=== PATIENT | female | born 1945 | race Hispanic/Latino ===

== ENCOUNTER 2017-07-30 16:04 | Inpatient (IN) | payer MEDICARE, MEDICAID ==
[2017-07-30 16:56] LABS: #Eosinphils 0.1 thou/uL (0.0-0.7); #Lymphocytes 1.4 thou/uL (1.20-3.40); #Monocytes 0.4 thou/uL (0.11-0.59); #Neutrophils 3.4 thou/uL (1.40-6.50); %Basophils 0.5 % (0.0-1.0); %Eosinophils 1.5 % (0.0-10.0); %Lymphocytes 27.1 % (21.0-51.0); %Monocytes 7.6 % (0.0-10.0); %Neutrophils 63.4 % (42.0-75.0); Hemoglobin 15.7 g/dL (12.0-16.0); Mean Corpuscular HGB CONC 32.8 g/dL (32.0-36.0); Mean Corpuscular Hemoglobin 33.1 pg (27.0-31.0); Mean Platelet Volume 7.8 fL (7.4-10.4); Platelet Count 171 thou/uL (130-400); RBC Distribution Width 14.7 % (11.5-14.5); Red Blood Cell (RBC) Count 4.75 mill/uL (4.20-5.40); White Blood Cell (WBC) Count 5.3 thou/uL (4.8-10.8)
[2017-07-30 17:03] LABS: INR-International Normal Ratio 1.3; Prothrombin Time 16.2 SEC (12.0-14.7)
[2017-07-30 17:18] LABS: Anion Gap 14 mmol/L (10-20); BUN (Urea Nitrogen) 18 mg/dL (9.8-20.1); Calc. Creatinine Clearance 0 mL/min (70-130); Carbon Dioxide 24 mmol/L (23-31); Chloride 104 mmol/L (98-107); Estimated GFR-MDRD 84; Glucose 112 mg/dL (80-115); Magnesium 1.7 mg/dL (1.6-2.6); Potassium 3.9 mmol/L (3.5-5.1); Sodium 138 mmol/L (136-145)
[2017-07-30 17:24] LABS: CKMB 2.5 ng/mL (0-6.6); Troponin I 0.023 ng/mL (< 0.028)
[2017-07-30] MEDS ORDERED: Diltiazem 125 MG/25 ML ONE (17:31)
--- NOTE | 2017-07-30 17:53 | RAD ---
ONE VIEW CHEST: 07/30/17 COMPARISON: 06/06/15. HISTORY: Dyspnea. FINDINGS: Enlarged cardiac silhouette. Pulmonary vessels are normal. There are bibasilar pleural effusion with adjacent parenchymal changes. Upper lungs are clear of any consolidation or masses. No pneumothorax. No osseous abnormalities. IMPRESSION: Cardiomegaly. Bilateral pleural effusions. Congestive heart failure. POS: [facility]
[2017-07-30 21:29] LABS: Troponin I Less than 0.010 ng/mL (< 0.028)
[2017-07-30 21:48] LABS: Bilirubin Moderate (Negative); Blood, Urine Trace (Negative); Clarity CLOUDY (Clear); Glucose, Urine (Dipstick) Negative (Negative); Leukocyte Small (Negative); Nitrite Positive (Negative); Protein, Urine (Dipstick) 300 mg/dL (Neg-Trace); Specific Gravity, Urine 1.035 (1.002-1.036); pH, Urine 5.5 (5.0-9.0)
[2017-07-30 21:51] LABS: Bacteria/HPF None Seen HPF (None Seen); Squamous Epithelial 0-3 HPF (0-3)
[2017-07-30 21:59] LABS: Pathc Cast-AUWi Flag 4.36 (0-2.49)
[2017-07-30 22:06] LABS: RBC/HPF 0-3 HPF (0-3)
[2017-07-30 22:07] LABS: Crystals/HPF 3+ CA OXALATE HPF (Negative); Hyaline Casts/LPF 4-6 HYALINE CAST LPF (0-3 Hyaline)
[2017-07-31] MEDS ORDERED: Milk Of Magnesia 30 ML UDCUP PO PRN (00:11)
[2017-07-31] MEDS ORDERED: Mag-Al 1200 mg/1200 mg/30 ML UDCUP PO PRN (00:11)
[2017-07-31] MEDS ORDERED: Ondansetron ODT 4 MG TAB PO PRN (00:11)
[2017-07-31] MEDS ORDERED: Ondansetron HCl/PF 4 MG/2 ML Vial IVP PRN (00:11)
[2017-07-31 00:43] LABS: Troponin I 0.035 ng/mL (< 0.028)
[2017-07-31] MEDS: Acetaminophen 325 MG TAB PO PRN (00:56)
--- NOTE | 2017-07-31 02:26 | HP ---
PRIMARY CARE PHYSICIAN: Dr. Ana Newton at [facility]. CHIEF COMPLAINT: Shortness of breath. HISTORY OF PRESENT ILLNESS: Ms. Henning is a pleasant 71-year-old female who has a history of hypert ension and atrial fibrillation. She says she has never had problems with atrial fibrillation until r ecently. She says she really did not notice any significant problems herself other than shortness of breath, she says 6 months, but she says that her daughter says that she did not look very good and s uggested that she come to the hospital. When asked what in particular her daughter was concerned abo oh, she is really not sure, but she does admit to feeling short of breath over the last 6 months, but has been getting progressively worse. She admits to waking up through the night short of breath. S he also says that her granddaughter noticed her legs are swelling. The patient herself really had be en paid much attention to it. She says that she has been under a lot of stress with regard to family matters and as a result she has been "running all around," but not really paying attention to her ow n health. She was seen in the ER, she was found to be in atrial fibrillation with rapid ventricular response. She was placed on a Cardizem drip and is being admitted for further evaluation and treatme . The patient denies any chest pain. She has had the shortness of breath as previously mentioned, but denies any dizziness or lightheadedness, etc. REVIEW OF SYSTEMS: Constitutional: There have been no fevers, chills, no night sweats, no weight lo ss. HEENT: No headache, no dizziness, no visual changes, no sore throat, rhinorrhea, neck pain, no adenopathy. Pulmonary: No hemoptysis, no cough, no wheezing. Cardiovascular: As the history of pr esent illness. Gastrointestinal: No abdominal pain, no nausea, no vomiting, no change in bowels. G enitourinary: No urinary frequency, hematuria, no hesitancy. Neurologic: No focal weakness, numbne ss, no seizures. Psychiatric: No symptoms of anxiety or depression. Skin and Integument: No skin changes. No rash. PAST MEDICAL HISTORY: Significant for hypertension and atrial fibrillation. PAST SURGICAL HISTORY: She has had a hysterectomy. ALLERGIES: PENICILLIN. SOCIAL HISTORY: She is a former smoker. She quit 20 years ago. She is . She has 4 childre n, 3 boys and one girl. She would like her oldest son, Alexandro Quesada, to be her surrogate decision maker. She would like to be a do not resuscitate. FAMILY HISTORY: Significant for diabetes mellitus. CURRENT MEDICATIONS: She is not sure of the name of her medicine. PHYSICAL EXAMINATION: GENERAL: She is alert and oriented. She appears to be in no acute distress. VITAL SIGNS: Blood pressure is 131/75, heart rate 115, respiratory rate of 16, temperature is 98.4, O2 sats 97% on room air. HEENT: Pupils are equal, round, and reactive. Extraocular muscles are intact. Her sclerae are anic teric. Throat: No erythema, no exudates. She has poor dentition. No erythema. NECK: No adenopathy, no bruits, no thyromegaly, no nodules. LUNGS: She has got coarse breath sounds, but no jatin wheezing or rales. Some decreased breath soun ds at the bases. CARDIOVASCULAR: She has an irregularly irregular rhythm. It is tachycardic. There were no murmurs, no clicks, no rubs. ABDOMEN: Obese, it is soft, it is nontender, nondistended. Positive for bowel sounds. No rebound, no guarding. EXTREMITIES: She has got 2+ pitting edema bilaterally, but the left is greater than the right, and s he has got 2 ulcers on the lateral to the Achilles on both the medial and lateral side and it is a da rk eschar. Her pulses are palpable bilaterally, but her left dorsalis pedis is more diminished than on the right and she has got a blister on the fourth toe on the left foot and some mycotic nail dickerson es. NEUROLOGICALLY: The exam is nonfocal. SIGNIFICANT LABORATORY AND X-RAY FINDINGS: Sodium 130, potassium 3.9, chloride is 104, CO2 is 24, BU N of 18, creatinine 0.69, glucose is 112. Natriuretic peptide is 1781. Troponin 0.023 and 0.010. W eduarda blood cell count 5.3, hemoglobin 15.7, hematocrit is 47.8, platelet count is 171. INR is 1.3. Urinalysis is positive nitrites and small leukocyte esterase. EKG was atrial fibrillation with a hea rt rate in the 140s. ASSESSMENT AND PLAN: This is a pleasant 71-year-old female who presents with shortness of breath, PN D, and orthopnea. 1. She also was in atrial fibrillation with rapid ventricular response and appears to be in congesti ve heart failure, likely as a result of atrial fibrillation. She will be admitted to Telemetry. We will continue the Cardizem drip, which had been started in the ER, likely will need to get an echocar diogram as well as thyroid function test to help assess the reason for this recurrence of the atrial fibrillation and rapid ventricular response. We will also consult her building mechanic for further recom mendations. For heart failure, we will get an echocardiogram. Place her on IV Lasix due to the volu me overload. Based on her ejection fraction from the echo decide on further medication such as an AC E inhibitor, beta loretta. 2. Lower extremity edema. This is likely from heart failure, but suspect she might have some venous stasis as well. We will get lower extremity venous Dopplers just to rule out DVT. She may also nee d an arterial Doppler because there is some concern that she could have some vascular compromise on t he left leg, especially given the ulcers around her heel, although these are likely venous stasis [facility] ers and will also get local wound care consult to look at these lesions as well.
[2017-07-31 06:02] LABS: #Basophils 0.1 thou/uL (0.0-0.2); #Eosinphils 0.1 thou/uL (0.0-0.7); #Monocytes 0.5 thou/uL (0.11-0.59); #Neutrophils 3.4 thou/uL (1.40-6.50); %Basophils 0.9 % (0.0-1.0); %Eosinophils 1.5 % (0.0-10.0); %Lymphocytes 32.8 % (21.0-51.0); %Neutrophils 56.8 % (42.0-75.0); Hemoglobin 15.6 g/dL (12.0-16.0); Mean Corpuscular HGB CONC 33.1 g/dL (32.0-36.0); Mean Corpuscular Hemoglobin 33.5 pg (27.0-31.0); Mean Platelet Volume 8.3 fL (7.4-10.4); Platelet Count 167 thou/uL (130-400); RBC Distribution Width 14.6 % (11.5-14.5); Red Blood Cell (RBC) Count 4.65 mill/uL (4.20-5.40)
[2017-07-31] MEDS: Furosemide 40 MG/4 ML VIAL SLOW IVP SCH ×2 (06:09→14:37)
[2017-07-31 06:15] LABS: Anion Gap 13 mmol/L (10-20); BUN (Urea Nitrogen) 19 mg/dL (9.8-20.1); Calc. Creatinine Clearance 95 mL/min (70-130); Carbon Dioxide 25 mmol/L (23-31); Chloride 104 mmol/L (98-107); Cholesterol 85 mg/dl (< 200 Desired); Estimated GFR-MDRD 83; Glucose 92 mg/dL (80-115); HDL Cholesterol 21 mg/dL (>60 Neg Risk); LDL Cholesterol, Calculated 46 mg/dL; Potassium 3.7 mmol/L (3.5-5.1); Sodium 138 mmol/L (136-145); Triglycerides 88 mg/dL (Less than 150)
[2017-07-31] MEDS ORDERED: Diltiazem 125 MG in Sodium Chloride 0.9% 100 ML IVPB SCH ×2 (07:00→10:30)
[2017-07-31] MEDS: Famotidine 20 MG TAB PO SCH ×2 (10:12→20:48)
[2017-07-31] MEDS: Docusate 100 MG CAP PO SCH ×2 (10:12→20:48)
[2017-07-31] MEDS: Enoxaparin Sodium 60 MG/0.6 ML SYRINGE SC SCH ×2 (10:13→20:48)
--- NOTE | 2017-07-31 11:30 | ULT ---
BILATERAL LOWER EXTREMITY VENOUS DOPPLER ULTRASOUND: Date: 07/31/17 HISTORY: Bilateral lower extremity edema. TECHNIQUE: Arnold scale ultrasound with color flow and spectral Doppler imaging of the deep venous systems of the lower extremities was performed bilaterally. FINDINGS: There is good flow, compression, and augmentation noted in the common femoral, femoral, deep femoral, popliteal, posterior tibial, and greater saphenous veins on either side. IMPRESSION: No evidence of deep venous thrombosis in either lower extremity. POS: [facility]
--- NOTE | 2017-07-31 11:38 | ULT ---
BILATERAL LOWER EXTREMITY ARTERIAL DOPPLER STUDY: INDICATIONS: Bilateral lower extremity pain and edema. TECHNIQUE: The arteries of both lower extremities are evaluated with ultrasound and Doppler. Color Doppler with spectral analysis and velocity records are obtained at all segments. FINDINGS: RIGHT LOWER EXTREMITY: The right common femoral, the profunda femoral, the superficial femoral, the popliteal, the anterior tibial, the posterior tibial, and the dorsal pedis arteries all show a normal triphasic wave-form. Velocities appear symmetric throughout these arteries. LEFT LOWER EXTREMITY: The left common femoral, the profunda femoral, the superficial femoral, the po pliteal, the anterior tibial, the posterior tibial, and the dorsal pedis arteries all show a normal t riphasic wave-form with symmetric velocities. IMPRESSION: No evidence of significant peripheral vascular disease identified in either lower extremity by Dopple r study. POS: [facility]
--- NOTE | 2017-07-31 13:54 | PDOC.PN ---
- Subjective Encounter Start Date: 07/31/17 Encounter Start Time: 09:00 Subjective: pt up in bed eating breakfast - Objective Resuscitation Status: Resuscitation Status DNR:Do Not Resuscitate Vital Signs & Weight: Vital Signs (12 hours) Temp Pulse Resp BP BP Pulse Ox 07/31/17 08:00 97.4 F L 125 H 14 140/64 96 07/31/17 07:56 140/64 07/31/17 04:07 97.8 F 104 H 20 119/69 95 Weight Admit Weight 174 lb 3.2 oz Weight 175 lb 4.8 oz I&O: 07/30/17 07/31/17 08/01/17 06:59 06:59 06:59 Intake Total 504 Balance 504 Result Diagrams: 07/31/17 04:53 07/31/17 04:53 Phys Exam - Physical Examination HEENT: PERRLA, moist MMs, sclera anicteric, TM's clear, oral pharynx no lesions , 2+ tonsils Neck: no nodes, no JVD, supple, full ROM mild crackles to bases Cardiovascular: irregular Gastrointestinal: soft, non-tender, no distention, positive bowel sounds Musculoskeletal: edema present Dx/Plan - Plan 1) Afib with RVR 2) possible heart failure echo pending 3) lower ext edema 4) htn plan: pt stopped taking her medication 6months ago because she was feeling well. Her CHADVAS score is 3. She is not on any AC at home. currently on lovonox , will change to oral once seen by cardiology. echo pending. TSH pending. will change iv cardizem to oral. Arterial doppler normal. * . Review of Systems - Review of Systems Eyes: negative: Pain, Vision Change, Conjunctivae Inflammation, Eyelid Inflammation, Redness, Other ENT: negative: Ear Pain, Ear Discharge, Nose Pain, Nose Discharge, Nose Congestion, Mouth Pain, Mouth Swelling, Throat Pain, Throat Swelling, Other Respiratory: negative: Cough, Dry, Shortness of Breath, Hemoptysis, SOB with Excertion, Pleuritic Pain, Sputum, Wheezing Cardiovascular: negative: chest pain, palpitations, orthopnea, paroxysmal nocturnal dyspnea, edema, light headedness, other Gastrointestinal: negative: Nausea, Vomiting, Abdominal Pain, Diarrhea, Constipation, Melena, Hematochezia, Other Genitourinary: negative: Dysuria, Frequency, Incontinence, Hematuria, Retention , Other - Medications/Allergies Allergies/Adverse Reactions: Allergies Allergy/AdvReac Type Severity Reaction Status Date / Time Penicillins Allergy Verified 07/30/17 22:37 Medications: Current Medications Acetaminophen (Tylenol) 650 mg PO Q4H PRN PRN Reason: Headache/Fever or Pain Last Admin: 07/31/17 00:56 Dose: 650 mg Al Hydroxide/Mg Hydroxide (Maalox) 30 ml PO Q6H PRN PRN Reason: Heartburn or Indigestion Diltiazem HCl (Cardizem) 60 mg PO Q6H [facility] Docusate Sodium (Colace) 100 mg PO BID [facility] Last Admin: 07/31/17 10:12 Dose: 100 mg Enoxaparin Sodium (Lovenox) 60 mg SC 0900,2100 [facility] Last Admin: 07/31/17 10:13 Dose: 60 mg Famotidine (Pepcid) 20 mg PO BID [facility] Last Admin: 07/31/17 10:12 Dose: 20 mg Furosemide (Lasix) 40 mg SLOW IVP 0600,1400 [facility] Last Admin: 07/31/17 06:09 Dose: 40 mg Diltiazem HCl 125 mg/ Sodium (Chloride) 125 mls @ 10 mls/hr IVPB INF [facility] Magnesium Hydroxide (Milk Of Magnesium) 30 ml PO DAILYPRN PRN PRN Reason: Constipation Ondansetron HCl (Zofran Odt) 4 mg PO Q6H PRN PRN Reason: Nausea/Vomiting Ondansetron HCl (Zofran) 4 mg IVP Q6H PRN PRN Reason: Nausea/Vomiting Sodium Chloride (Flush - Normal Saline) 10 ml IVF Q12HR [facility] Last Admin: 07/31/17 08:03 Dose: 10 ml Sodium Chloride (Flush - Normal Saline) 10 ml IVF PRN PRN PRN Reason: Saline Flush Last Admin: 07/31/17 06:09 Dose: 10 ml
--- NOTE | 2017-07-31 14:25 | CON ---
DATE OF CONSULTATION: 07/31/2017 REASON FOR CONSULTATION: Atrial fibrillation. HISTORY OF PRESENT ILLNESS: Ms. Henning is a very pleasant 71-year-old who I have seen and evaluated in the past. She has a history of atrial fibrillation and was cardioverted x1 in 2012. She recently presented with atrial fibrillation with RVR. She also has associated cough, congestion, low grade fevers and phlegm production. She is currently placed on IV Cardizem with appropriate con trol. PAST MEDICAL HISTORY: Hypertension and atrial fibrillation. PAST SURGICAL HISTORY: Hysterectomy. ALLERGIES: PENICILLIN. FAMILY HISTORY: Negative for CAD. SOCIAL HISTORY: No current tobacco or alcohol use. MEDICATIONS: Unknown. REVIEW OF SYSTEMS: Ten-point review of systems is reviewed and as above, otherwise negative. PHYSICAL EXAMINATION: GENERAL: Patient is a pleasant female who is in no acute distress. The patient appears her stated a ge. VITAL SIGNS: Blood pressure 140/64, pulse 125, respirations 20. NEUROLOGIC: The patient is alert and oriented x3 with no focal neurologic deficits. HEENT: Sclerae without icterus. Mouth has moist mucous membranes with normal pallor. NECK: No JVD. Carotid upstroke brisk. No bruits bilaterally. LUNGS: Clear to auscultation with unlabored respirations. BACK: No scoliosis or kyphosis. CARDIAC: Irregularly irregular. ABDOMEN: Soft, nontender, nondistended. No peritoneal signs present. No hepatosplenomegaly. No ab normal striae. EXTREMITIES: 2+ femoral and 2+ dorsalis pedis pulses. No cyanosis, clubbing, or edema. SKIN: No gross abnormalities. PERTINENT LABORATORY DATA: Hemoglobin 15.6, creatinine 0.7. IMPRESSION: 1. Atrial fibrillation with rapid ventricular response. 2. Upper respiratory infection. RECOMMENDATIONS: At this point, I recommend IV Cardizem for rate control. We will supplement with p .o. Cardizem. The patient may have underlying pulmonary infection. We will leave per the primary te am on recommendations. We would also recommend anticoagulation therapy. I will continue to follow w debbi you.
[2017-08-01] MEDS: Acetaminophen 325 MG TAB PO PRN (01:12)
[2017-08-01] MEDS: Furosemide 40 MG/4 ML VIAL SLOW IVP SCH (06:00)
[2017-08-01] MEDS: Famotidine 20 MG TAB PO SCH ×2 (08:27→21:00)
[2017-08-01] MEDS: Docusate 100 MG CAP PO SCH ×2 (08:28→21:00)
[2017-08-01] MEDS: Enoxaparin Sodium 60 MG/0.6 ML SYRINGE SC SCH ×2 (08:28→21:00)
[2017-08-01 11:55] LABS: Anion Gap 11 mmol/L (10-20); BUN (Urea Nitrogen) 16 mg/dL (9.8-20.1); Calc. Creatinine Clearance 91 mL/min (70-130); Calcium 8.9 mg/dL (7.8-10.44); Carbon Dioxide 32 mmol/L (23-31); Chloride 100 mmol/L (98-107); Estimated GFR-MDRD 80; Glucose 86 mg/dL (80-115); Potassium 3.4 mmol/L (3.5-5.1); Sodium 140 mmol/L (136-145); Troponin I 0.011 ng/mL (< 0.028)
[2017-08-01] MEDS ORDERED: Potassium Chloride 20 MEQ TAB PO SCH (13:00)
[2017-08-01] MEDS ORDERED: Carvedilol 3.125 MG TAB PO SCH (14:30)
--- NOTE | 2017-08-01 14:39 | PRG ---
DATE OF SERVICE: 08/01/2017 SUBJECTIVE: Ms. Henning is doing better. She is off IV Cardizem. She is going to have p.o. Cardize m. Heart rate continues to have mildly elevated. PHYSICAL EXAMINATION: VITAL SIGNS: Blood pressure 111/76, pulse 104, temperature 97.5. LUNGS: Crackles bilaterally with decreased breath sounds noted on left versus right. HEART: Irregularly regular. ABDOMEN: Soft, nontender, nondistended. EXTREMITIES: 2+ pitting edema. PERTINENT LABORATORY DATA: Hemoglobin 15.6. IMPRESSION: 1. Atrial fibrillation. 2. New onset systolic heart failure. 3. Upper respiratory infection. RECOMMENDATIONS: The patient's symptoms may be all related to acute systolic heart failure. This is felt to be a new finding. At this point, we will add low dose Coreg and try and titrate up her Core g and we titrate down her Cardizem. Continue Lovenox. We will continue diuresis with IV Lasix. Hitesh n is to proceed with angiography on Saturday. I discussed the procedure in full detail with Ms. Siomara robbins. The risks included but not limited to the following: , stroke, OR, need for emergency surge ry, loss of limb, bleeding, and infection, as well as a reaction to the dye causing kidney failure an d needing long-term dialysis. Other risks include acute stent thrombosis and restenosis, vessel disse ction, perforation, need for emergency surgery in addition to distal embolization causing chronic roseline t discomfort as well as amputation. All questions answered and also discussed drug versus nondrug st ent placement. There are no contraindications and proceed if needed. Further recommendation dependi darinel above.
--- NOTE | 2017-08-01 14:52 | PDOC.PN ---
- Subjective Encounter Start Date: 08/01/17 Encounter Start Time: 11:30 - Objective Resuscitation Status: Resuscitation Status DNR:Do Not Resuscitate Vital Signs & Weight: Vital Signs (12 hours) Temp Pulse Resp BP BP BP Pulse Ox 08/01/17 12:00 97.7 F 97 16 112/84 99 08/01/17 08:27 104 H 111/76 08/01/17 08:00 97.5 F L 104 H 18 111/76 97 08/01/17 04:00 97.7 F 91 20 114/79 93 L Weight Admit Weight 174 lb 3.2 oz Weight 172 lb 12.8 oz I&O: 07/31/17 08/01/17 08/02/17 06:59 06:59 06:59 Intake Total 504 1374 600 Output Total 900 Balance 504 474 600 Result Diagrams: 07/31/17 04:53 08/01/17 11:10 Phys Exam - Physical Examination HEENT: PERRLA, moist MMs, sclera anicteric, TM's clear, oral pharynx no lesions , 2+ tonsils Neck: no nodes, no JVD, supple, full ROM Respiratory: no wheezing, no rales, no rhonchi, wheezing present, clear to auscultation bilateral Cardiovascular: RRR, no significant murmur, no rub, gallop, irregular Gastrointestinal: soft, non-tender, no distention, positive bowel sounds Musculoskeletal: edema present Neurological: non-focal, normal sensation, moves all 4 limbs Dx/Plan - Plan 1) Afib with RVR 2)systolic heart failure new 3) acute uti 4) htn plan: pt stopped taking her medication 6months ago because she was feeling well. Her CHADVAS score is 3. She is not on any AC at home. currently on lovonox , will change to oral once seen by cardiology. echo pending. TSH pending. will change iv cardizem to oral. Arterial doppler normal. will continue current meds , coreg added. will continue bid lasix iv for now. will start pt on cipro will await culture. pt going for cath per cardiology. pt's bp is on the lower side will change lasix to qd. pt on coreg * . Review of Systems - Review of Systems Eyes: negative: Pain, Vision Change, Conjunctivae Inflammation, Eyelid Inflammation, Redness, Other ENT: negative: Ear Pain, Ear Discharge, Nose Pain, Nose Discharge, Nose Congestion, Mouth Pain, Mouth Swelling, Throat Pain, Throat Swelling, Other Respiratory: negative: Cough, Dry, Shortness of Breath, Hemoptysis, SOB with Excertion, Pleuritic Pain, Sputum, Wheezing Cardiovascular: negative: chest pain, palpitations, orthopnea, paroxysmal nocturnal dyspnea, edema, light headedness, other Gastrointestinal: negative: Nausea, Vomiting, Abdominal Pain, Diarrhea, Constipation, Melena, Hematochezia, Other Genitourinary: negative: Dysuria, Frequency, Incontinence, Hematuria, Retention , Other Musculoskeletal: negative: Neck Pain, Shoulder Pain, Arm Pain, Back Pain, Hand Pain, Leg Pain, Foot Pain, Other - Medications/Allergies Allergies/Adverse Reactions: Allergies Allergy/AdvReac Type Severity Reaction Status Date / Time Penicillins Allergy Verified 07/30/17 22:37 Medications: Current Medications Acetaminophen (Tylenol) 650 mg PO Q4H PRN PRN Reason: Headache/Fever or Pain Last Admin: 08/01/17 01:12 Dose: 650 mg Al Hydroxide/Mg Hydroxide (Maalox) 30 ml PO Q6H PRN PRN Reason: Heartburn or Indigestion Carvedilol (Coreg) 3.125 mg PO BID [facility] Carvedilol (Coreg) 3.125 mg PO NOW [facility] Stop: 08/01/17 16:30 Ciprofloxacin (Cipro) 250 mg PO BID@0600,2000 [facility] Diltiazem HCl (Cardizem Cd) 240 mg PO DAILY [facility] Last Admin: 08/01/17 08:27 Dose: 240 mg Docusate Sodium (Colace) 100 mg PO BID [facility] Last Admin: 08/01/17 08:28 Dose: 100 mg Enoxaparin Sodium (Lovenox) 60 mg SC 0900,2100 [facility] Last Admin: 08/01/17 08:28 Dose: 60 mg Famotidine (Pepcid) 20 mg PO BID [facility] Last Admin: 08/01/17 08:27 Dose: 20 mg Furosemide (Lasix) 40 mg SLOW IVP DAILY [facility] Magnesium Hydroxide (Milk Of Magnesium) 30 ml PO DAILYPRN PRN PRN Reason: Constipation Ondansetron HCl (Zofran Odt) 4 mg PO Q6H PRN PRN Reason: Nausea/Vomiting Ondansetron HCl (Zofran) 4 mg IVP Q6H PRN PRN Reason: Nausea/Vomiting Sodium Chloride (Flush - Normal Saline) 10 ml IVF Q12HR [facility] Last Admin: 08/01/17 08:30 Dose: 10 ml Sodium Chloride (Flush - Normal Saline) 10 ml IVF PRN PRN PRN Reason: Saline Flush Last Admin: 08/01/17 06:00 Dose: 10 ml
[2017-08-01] MEDS: Cipro 250 MG TAB PO SCH (21:00)
[2017-08-01] MEDS: Atorvastatin Calcium 10 MG TAB PO SCH (21:00)
[2017-08-01] MEDS ORDERED: Furosemide 40 MG/4 ML VIAL SLOW IVP SCH (21:00)
[2017-08-01] MEDS: Carvedilol 3.125 MG TAB PO SCH (21:00)
[2017-08-02] MEDS ORDERED: diphenhydrAMINE 25 MG CAP PO SCH (03:00)
[2017-08-02] MEDS: Cipro 250 MG TAB PO SCH (06:47)
[2017-08-02] MEDS ORDERED: Furosemide 40 MG/4 ML VIAL SLOW IVP SCH ×3 (09:00→14:00)
[2017-08-02] MEDS: Famotidine 20 MG TAB PO SCH ×2 (09:01→21:17)
[2017-08-02] MEDS: Carvedilol 3.125 MG TAB PO SCH (09:01)
[2017-08-02] MEDS: Docusate 100 MG CAP PO SCH ×2 (09:01→21:17)
[2017-08-02] MEDS: Enoxaparin Sodium 60 MG/0.6 ML SYRINGE SC SCH ×2 (09:02→21:18)
[2017-08-02] MEDS ORDERED: Potassium Chloride 20 MEQ TAB PO SCH (10:00)
--- NOTE | 2017-08-02 13:49 | PDOC.CTH ---
Cardiology Progress Note - Subjective Patient with complaint of edema that's improved. No CP, SOB. No TIA or stroke- like symptoms. - Objective Vital Signs Temp Pulse Resp BP BP Pulse Ox 08/02/17 09:01 91 113/62 08/02/17 04:00 97.9 F 66 18 109/84 93 L Admit Weight 174 lb 3.2 oz Weight 176 lb 3 oz 08/01/17 08/02/17 08/03/17 06:59 06:59 06:59 Intake Total 1374 1540 Output Total 900 Balance 474 1540 - Physical Examination General/Neuro: alert & oriented x3, NAD Lungs: other: (decreased BS at bases) Heart: other: (IRR) Abdomen: NT/ND, soft Extremities: other: (2-3+ bilateral pitting edema) - Telemetry Telemetry Rhythm: AFib. Rate 90s-110bpm - Labs Result Diagrams: 07/31/17 04:53 08/01/17 11:10 Troponin/CKMB CK-MB (CK-2) 3.0 ng/mL (0-6.6) 08/01/17 11:10 Troponin I 0.011 ng/mL (< 0.028) 08/01/17 11:10 Labs: O/W CBC wnl - Assessment/Plan 1. New-onset systolic CHF - Improved overall, but will give additional lasix 40mg IV today. Plan for cath Saturday. 2. AFib with RVR - improved heart rate control. Increase Coreg to 6.25mg BID starting tomorrow. Wean cardizem and continue to titrate bblockers. On Lovenox. Will need NOAC started after cath and pending findings. 3. HTN - controlled.
[2017-08-02] MEDS: Potassium Chloride 20 MEQ TAB PO SCH (16:24)
--- NOTE | 2017-08-02 17:59 | PDOC.PN ---
- Subjective Encounter Start Date: 08/02/17 Encounter Start Time: 14:30 Patient seen and examined. No new complaints. No overnight events. No new CP/SOB /syncope - Objective Resuscitation Status: Resuscitation Status DNR:Do Not Resuscitate MAR Reviewed: Yes Vital Signs & Weight: Vital Signs (12 hours) Temp Pulse Resp BP BP Pulse Ox 08/02/17 16:22 97.8 F 84 17 104/70 96 08/02/17 12:10 97.6 F 97 18 99/69 96 08/02/17 09:01 91 113/62 08/02/17 08:15 97.7 F 91 17 113/62 97 Weight Admit Weight 174 lb 3.2 oz Weight 176 lb 3 oz I&O: 08/01/17 08/02/17 08/03/17 06:59 06:59 06:59 Intake Total 1374 1540 Output Total 900 Balance 474 1540 Result Diagrams: 07/31/17 04:53 08/01/17 11:10 EKG Reviewed by me: Yes (Tele Afib) Phys Exam - Physical Examination Constitutional: NAD Respiratory: no wheezing, no rhonchi Cardiovascular: no rub, irregular Gastrointestinal: soft, non-tender, positive bowel sounds Musculoskeletal: edema present Neurological: moves all 4 limbs Dx/Plan - Plan DVT proph w/lovenox IMPRESSION: 1. Afib with RVR - Off Cardizem drip 2. New onset Systolic heart failure 3. HTN 4. Hypokalemia 5. URTI/?UTI 6. Elevated troponins due to demand ischemia PLAN: * Cardio following * Cont current meds as below * Cont anticoag/rate control * DC Cipro - Urine cultures * Reduce Lasix dose * AM labs * Cont to monitor * Replace Potassium * Cath on saturday Review of Systems - Review of Systems Respiratory: negative: Cough, Dry, Shortness of Breath, Hemoptysis, SOB with Excertion, Pleuritic Pain, Sputum, Wheezing Cardiovascular: negative: chest pain, palpitations, orthopnea, paroxysmal nocturnal dyspnea, edema, light headedness, other Gastrointestinal: negative: Nausea, Vomiting, Abdominal Pain, Diarrhea, Constipation, Melena, Hematochezia, Other - Medications/Allergies Allergies/Adverse Reactions: Allergies Allergy/AdvReac Type Severity Reaction Status Date / Time Penicillins Allergy Verified 07/30/17 22:37 Medications: Current Medications Acetaminophen (Tylenol) 650 mg PO Q4H PRN PRN Reason: Headache/Fever or Pain Last Admin: 08/01/17 01:12 Dose: 650 mg Al Hydroxide/Mg Hydroxide (Maalox) 30 ml PO Q6H PRN PRN Reason: Heartburn or Indigestion Atorvastatin Calcium (Lipitor) 10 mg PO HS [facility] Last Admin: 08/01/17 21:00 Dose: 10 mg Carvedilol (Coreg) 6.25 mg PO BID [facility] Ciprofloxacin (Cipro) 250 mg PO BID@0600,2000 [facility] Last Admin: 08/02/17 06:47 Dose: 250 mg Diltiazem HCl (Cardizem Cd) 120 mg PO DAILY [facility] Docusate Sodium (Colace) 100 mg PO BID [facility] Last Admin: 08/02/17 09:01 Dose: 100 mg Enoxaparin Sodium (Lovenox) 60 mg SC 0900,2100 [facility] Last Admin: 08/02/17 09:02 Dose: 60 mg Famotidine (Pepcid) 20 mg PO BID [facility] Last Admin: 08/02/17 09:01 Dose: 20 mg Furosemide (Lasix) 20 mg SLOW IVP 0600,1400 [facility] Magnesium Hydroxide (Milk Of Magnesium) 30 ml PO DAILYPRN PRN PRN Reason: Constipation Ondansetron HCl (Zofran Odt) 4 mg PO Q6H PRN PRN Reason: Nausea/Vomiting Ondansetron HCl (Zofran) 4 mg IVP Q6H PRN PRN Reason: Nausea/Vomiting Potassium Chloride (K-Dur) 20 meq PO BID-[facility] Last Admin: 08/02/17 16:24 Dose: 20 meq Sodium Chloride (Flush - Normal Saline) 10 ml IVF Q12HR [facility] Last Admin: 08/02/17 09:02 Dose: 10 ml Sodium Chloride (Flush - Normal Saline) 10 ml IVF PRN PRN PRN Reason: Saline Flush Last Admin: 08/01/17 06:00 Dose: 10 ml
[2017-08-02] MEDS: Atorvastatin Calcium 10 MG TAB PO SCH (21:17)
[2017-08-03] MEDS: Acetaminophen 325 MG TAB PO PRN ×3 (02:19→20:44)
[2017-08-03 05:31] LABS: #Basophils 0.1 thou/uL (0.0-0.2); #Eosinphils 0.1 thou/uL (0.0-0.7); #Lymphocytes 1.8 thou/uL (1.20-3.40); #Monocytes 0.6 thou/uL (0.11-0.59); #Neutrophils 2.6 thou/uL (1.40-6.50); %Basophils 1.8 % (0.0-1.0); %Eosinophils 2.8 % (0.0-10.0); %Lymphocytes 34.6 % (21.0-51.0); %Monocytes 10.6 % (0.0-10.0); %Neutrophils 50.2 % (42.0-75.0); Hemoglobin 14.3 g/dL (12.0-16.0); Mean Corpuscular HGB CONC 33.2 g/dL (32.0-36.0); Mean Corpuscular Hemoglobin 33.7 pg (27.0-31.0); Mean Platelet Volume 8.7 fL (7.4-10.4); Platelet Count 130 thou/uL (130-400); Red Blood Cell (RBC) Count 4.24 mill/uL (4.20-5.40); White Blood Cell (WBC) Count 5.2 thou/uL (4.8-10.8)
[2017-08-03] MEDS: Furosemide 20 MG/2 ML VIAL SLOW IVP SCH ×2 (06:08→13:01)
[2017-08-03 06:09] LABS: Anion Gap 12 mmol/L (10-20); BUN (Urea Nitrogen) 21 mg/dL (9.8-20.1); Calc. Creatinine Clearance 87 mL/min (70-130); Calcium 8.5 mg/dL (7.8-10.44); Carbon Dioxide 29 mmol/L (23-31); Chloride 100 mmol/L (98-107); Estimated GFR-MDRD 75; Glucose 97 mg/dL (80-115); Magnesium 1.4 mg/dL (1.6-2.6); Potassium 3.4 mmol/L (3.5-5.1); Sodium 138 mmol/L (136-145)
[2017-08-03] MEDS ORDERED: traMADol HCl 50 MG TAB PO PRN (07:57)
[2017-08-03] MEDS ORDERED: Loperamide HCl 2 MG CAP PO PRN (07:57)
[2017-08-03] MEDS ORDERED: Artificial Tears 18 DROP/0.9 ML EA EYE PRN (07:57)
[2017-08-03] MEDS ORDERED: Sodium Chloride 0.65% Nasal 44 ML BOT EA NARE PRN (07:57)
[2017-08-03] MEDS ORDERED: Chloraseptic Spray 180 ml Bottle PO PRN (07:57)
[2017-08-03] MEDS ORDERED: hydrALAZINE 20 MG/ML VIAL SLOW IVP PRN (07:57)
[2017-08-03] MEDS ORDERED: Loratadine 10 MG TAB PO PRN (07:57)
[2017-08-03] MEDS ORDERED: Diabetic Tussin 200 MG/10 ML UDCUP PO PRN (07:57)
[2017-08-03] MEDS ORDERED: Eucerin (Mineral Oil/Petrolatum,White) 30 gm Jar TOP PRN (07:57)
[2017-08-03] MEDS ORDERED: Magnesium Sulfate 3 GM in Sodium Chloride 0.9% 100 ML IVPB SCH (08:00)
[2017-08-03 08:55] LABS: Bilirubin Negative (Negative); Blood, Urine Negative (Negative); Clarity CLEAR (Clear); Glucose, Urine (Dipstick) Negative (Negative); Leukocyte Negative (Negative); Nitrite Negative (Negative); Protein, Urine (Dipstick) Negative (Neg-Trace); Specific Gravity, Urine 1.008 (1.002-1.036); pH, Urine 7.5 (5.0-9.0)
[2017-08-03 08:57] LABS: Bacteria/HPF None Seen HPF (None Seen); Hyaline Casts/LPF 0-3 HYALINE CAST LPF (0-3 Hyaline); Squamous Epithelial None Seen HPF (0-3); WBC/HPF 0-3 HPF (0-3)
[2017-08-03] MEDS: Carvedilol 6.25 MG TAB PO SCH ×3 (09:01→20:39)
[2017-08-03] MEDS: Potassium Chloride 20 MEQ TAB PO SCH ×2 (09:22→18:03)
[2017-08-03] MEDS: Bupropion 150 MG SR TAB PO SCH (09:22)
[2017-08-03] MEDS: Famotidine 20 MG TAB PO SCH ×2 (09:22→20:38)
[2017-08-03] MEDS: Lisinopril 2.5 MG TAB PO SCH (09:23)
[2017-08-03] MEDS: Docusate 100 MG CAP PO SCH ×2 (09:23→20:39)
[2017-08-03] MEDS: Spironolactone 25 MG TAB PO SCH (09:23)
[2017-08-03] MEDS: Enoxaparin Sodium 60 MG/0.6 ML SYRINGE SC SCH ×2 (09:24→20:36)
--- NOTE | 2017-08-03 11:24 | PDOC.PN ---
- Subjective Encounter Start Date: 08/03/17 Encounter Start Time: 08:30 -: old records requested/rev Patient seen and examined. No new complaints. No overnight events - Objective Resuscitation Status: Resuscitation Status DNR:Do Not Resuscitate MAR Reviewed: Yes Vital Signs & Weight: Vital Signs (12 hours) Temp Pulse Resp BP BP BP BP 08/03/17 09:23 86 08/03/17 09:22 133/84 08/03/17 08:00 97.8 F 86 14 133/84 08/03/17 05:57 08/03/17 04:13 90 16 115/86 124/76 08/03/17 04:00 97.6 F 94 20 125/83 BP Pulse Ox 08/03/17 09:23 08/03/17 09:22 08/03/17 08:00 95 08/03/17 05:57 96 08/03/17 04:13 101/82 08/03/17 04:00 96 Weight Admit Weight 174 lb 3.2 oz Weight 173 lb 1.6 oz I&O: 08/02/17 08/03/17 08/04/17 06:59 06:59 06:59 Intake Total 1540 1522 Output Total 800 Balance 1540 722 Result Diagrams: 08/03/17 04:53 08/03/17 04:53 EKG Reviewed by me: Yes (afib) Phys Exam - Physical Examination Constitutional: NAD HEENT: PERRLA, moist MMs, sclera anicteric Neck: no JVD, supple Respiratory: no wheezing, no rales, no rhonchi, clear to auscultation bilateral Cardiovascular: irregular SM+ Gastrointestinal: soft, non-tender, no distention, positive bowel sounds Musculoskeletal: no edema, pulses present left heel wound with dressing Neurological: non-focal, normal sensation, moves all 4 limbs Lymphatic: no nodes Psychiatric: normal affect, A&O x 3 Skin: no rash, normal turgor Dx/Plan (1) Acute systolic ACC/AHA stage C congestive heart failure Code(s): I50.21 - ACUTE SYSTOLIC (CONGESTIVE) HEART FAILURE Status: Acute (2) Atrial fibrillation with RVR Code(s): I48.91 - UNSPECIFIED ATRIAL FIBRILLATION Status: Acute Comment: controlled (3) Hypokalemia Code(s): E87.6 - HYPOKALEMIA Status: Acute (4) Hypomagnesemia Code(s): E83.42 - HYPOMAGNESEMIA Status: Acute (5) Pulmonary hypertension Code(s): I27.20 - PULMONARY HYPERTENSION, UNSPECIFIED Status: Acute (6) Severe mitral regurgitation Code(s): I34.0 - NONRHEUMATIC MITRAL (VALVE) INSUFFICIENCY Status: Acute (7) Severe tricuspid regurgitation Code(s): I07.1 - RHEUMATIC TRICUSPID INSUFFICIENCY Status: Acute (8) UTI (urinary tract infection) Status: Ruled-out (9) Anxiety Code(s): F41.9 - ANXIETY DISORDER, UNSPECIFIED Status: Chronic (10) Hypertension Code(s): I10 - ESSENTIAL (PRIMARY) HYPERTENSION Status: Chronic (11) Macrocytosis Code(s): D75.89 - OTHER SPECIFIED DISEASES OF BLOOD AND BLOOD-FORMING ORGANS Status: Chronic - Plan cont current plan of care * replace potassium and magnesium * cardiac cath on saturday * medication reviewed as below * symptomatic treatment. * continue lovenox * rate controlled Review of Systems - Review of Systems ENT: negative: Ear Pain, Ear Discharge, Nose Pain, Nose Discharge, Nose Congestion, Mouth Pain, Mouth Swelling, Throat Pain, Throat Swelling, Other Respiratory: negative: Cough, Dry, Shortness of Breath, Hemoptysis, SOB with Excertion, Pleuritic Pain, Sputum, Wheezing Cardiovascular: negative: chest pain, palpitations, orthopnea, paroxysmal nocturnal dyspnea, edema, light headedness, other Gastrointestinal: negative: Nausea, Vomiting, Abdominal Pain, Diarrhea, Constipation, Melena, Hematochezia, Other Genitourinary: negative: Dysuria, Frequency, Incontinence, Hematuria, Retention , Other Musculoskeletal: negative: Neck Pain, Shoulder Pain, Arm Pain, Back Pain, Hand Pain, Leg Pain, Foot Pain, Other Skin: negative: Rash, Lesions, Yaw, Bruising, Other - Medications/Allergies Allergies/Adverse Reactions: Allergies Allergy/AdvReac Type Severity Reaction Status Date / Time Penicillins Allergy Verified 07/30/17 22:37 Medications: Current Medications Acetaminophen (Tylenol) 650 mg PO Q4H PRN PRN Reason: Headache/Fever or Pain Last Admin: 08/03/17 06:38 Dose: 650 mg Al Hydroxide/Mg Hydroxide (Maalox) 30 ml PO Q6H PRN PRN Reason: Heartburn or Indigestion Artificial Tears (Tears Naturale) 0 drop EA EYE PRN PRN PRN Reason: Dry Eyes Atorvastatin Calcium (Lipitor) 10 mg PO HS [facility] Last Admin: 08/02/17 21:17 Dose: 10 mg Bupropion HCl (Wellbutrin Sr) 150 mg PO DAILY [facility] Last Admin: 08/03/17 09:22 Dose: 150 mg Carvedilol (Coreg) 6.25 mg PO BID [facility] Last Admin: 08/03/17 09:22 Dose: 6.25 mg Diltiazem HCl (Cardizem Cd) 120 mg PO DAILY [facility] Last Admin: 08/03/17 09:23 Dose: 120 mg Docusate Sodium (Colace) 100 mg PO BID [facility] Last Admin: 08/03/17 09:23 Dose: 100 mg Enoxaparin Sodium (Lovenox) 60 mg SC 0900,2100 [facility] Last Admin: 08/03/17 09:24 Dose: 60 mg Famotidine (Pepcid) 20 mg PO BID [facility] Last Admin: 08/03/17 09:22 Dose: 20 mg Furosemide (Lasix) 20 mg SLOW IVP 0600,1400 [facility] Last Admin: 08/03/17 06:08 Dose: 20 mg Guaifenesin (Robitussin Sf) 200 mg PO Q4H PRN PRN Reason: Cough Hydralazine HCl (Apresoline) 10 mg SLOW IVP Q4H PRN PRN Reason: Systolic BP > 180 Lisinopril (Zestril) 2.5 mg PO DAILY [facility] Last Admin: 08/03/17 09:23 Dose: 2.5 mg Loperamide HCl (Imodium) 2 mg PO PRN PRN PRN Reason: Diarrhea/Loose Stools Loratadine (Claritin) 10 mg PO DAILYPRN PRN PRN Reason: Sinus Symptoms Magnesium Hydroxide (Milk Of Magnesium) 30 ml PO DAILYPRN PRN PRN Reason: Constipation Mineral Oil/White Petrolatum (Eucerin Cream) 0 gm TOP BIDPRN PRN PRN Reason: Dry Skin Ondansetron HCl (Zofran Odt) 4 mg PO Q6H PRN PRN Reason: Nausea/Vomiting Ondansetron HCl (Zofran) 4 mg IVP Q6H PRN PRN Reason: Nausea/Vomiting Phenol (Chloraseptic [place] 180 Ml Bot) 0 ml PO PRN PRN PRN Reason: Sore Throat Potassium Chloride (K-Dur) 20 meq PO BID-WM [facility] Last Admin: 08/03/17 09:22 Dose: 20 meq Sodium Chloride (Flush - Normal Saline) 10 ml IVF Q12HR [facility] Last Admin: 08/03/17 09:24 Dose: 10 ml Sodium Chloride (Flush - Normal Saline) 10 ml IVF PRN PRN PRN Reason: Saline Flush Last Admin: 08/03/17 06:08 Dose: 10 ml Sodium Chloride ([place] Nasal [place] 0.65%) 0 ml EA NARE QIDPRN PRN PRN Reason: Nasal Congestion Spironolactone (Aldactone) 12.5 mg PO QAM-[facility] Last Admin: 08/03/17 09:23 Dose: 12.5 mg Temazepam (Restoril) 15 mg PO HSPRN PRN PRN Reason: Insomnia Tramadol HCl (Ultram) 50 mg PO Q4H PRN PRN Reason: Moderate Pain (4-6)
[2017-08-03] MEDS: Atorvastatin Calcium 10 MG TAB PO SCH (20:39)
[2017-08-03] MEDS: Temazepam 15 MG CAP PO PRN (22:14)
--- NOTE | 2017-08-04 05:52 | PDOC.PN ---
- Subjective Encounter Start Date: 08/04/17 Encounter Start Time: 08:30 Patient seen and examined. No new complaints. No overnight events - Objective Resuscitation Status: Resuscitation Status DNR:Do Not Resuscitate MAR Reviewed: Yes Vital Signs & Weight: Vital Signs (12 hours) Temp Pulse Resp BP BP BP Pulse Ox 08/04/17 00:00 97.7 F 85 20 118/71 95 08/03/17 20:39 103/80 08/03/17 20:00 97.8 F 84 18 103/80 96 Weight Admit Weight 174 lb 3.2 oz Weight 173 lb 1.6 oz I&O: 08/02/17 08/03/17 08/04/17 06:59 06:59 06:59 Intake Total 1540 1522 1200 Output Total 800 750 Balance 1540 722 450 Result Diagrams: 08/03/17 04:53 08/04/17 05:06 EKG Reviewed by me: Yes (afib) Phys Exam - Physical Examination Constitutional: NAD HEENT: PERRLA, moist MMs, sclera anicteric Neck: no JVD, supple Respiratory: no wheezing, no rales, no rhonchi Cardiovascular: no significant murmur, irregular Gastrointestinal: soft, non-tender, no distention, positive bowel sounds Musculoskeletal: no edema, pulses present Neurological: non-focal, normal sensation, moves all 4 limbs Psychiatric: normal affect Skin: no rash, normal turgor Dx/Plan (1) Acute systolic ACC/AHA stage C congestive heart failure Code(s): I50.21 - ACUTE SYSTOLIC (CONGESTIVE) HEART FAILURE Status: Acute (2) Atrial fibrillation with RVR Code(s): I48.91 - UNSPECIFIED ATRIAL FIBRILLATION Status: Acute Comment: controlled (3) Hypokalemia Code(s): E87.6 - HYPOKALEMIA Status: Acute (4) Hypomagnesemia Code(s): E83.42 - HYPOMAGNESEMIA Status: Acute (5) Pulmonary hypertension Code(s): I27.20 - PULMONARY HYPERTENSION, UNSPECIFIED Status: Acute (6) Severe mitral regurgitation Code(s): I34.0 - NONRHEUMATIC MITRAL (VALVE) INSUFFICIENCY Status: Acute (7) Severe tricuspid regurgitation Code(s): I07.1 - RHEUMATIC TRICUSPID INSUFFICIENCY Status: Acute (8) Anxiety Code(s): F41.9 - ANXIETY DISORDER, UNSPECIFIED Status: Chronic (9) Hypertension Code(s): I10 - ESSENTIAL (PRIMARY) HYPERTENSION Status: Chronic (10) Macrocytosis Code(s): D75.89 - OTHER SPECIFIED DISEASES OF BLOOD AND BLOOD-FORMING ORGANS Status: Chronic - Plan cont current plan of care * medication reviewed as below * symptomatic treatment * stable medically * tomorrow cardiac cath. Review of Systems - Review of Systems ENT: negative: Ear Pain, Ear Discharge, Nose Pain, Nose Discharge, Nose Congestion, Mouth Pain, Mouth Swelling, Throat Pain, Throat Swelling, Other Respiratory: negative: Cough, Dry, Shortness of Breath, Hemoptysis, SOB with Excertion, Pleuritic Pain, Sputum, Wheezing Cardiovascular: negative: chest pain, palpitations, orthopnea, paroxysmal nocturnal dyspnea, edema, light headedness, other Gastrointestinal: negative: Nausea, Vomiting, Abdominal Pain, Diarrhea, Constipation, Melena, Hematochezia, Other Genitourinary: negative: Dysuria, Frequency, Incontinence, Hematuria, Retention , Other Musculoskeletal: negative: Neck Pain, Shoulder Pain, Arm Pain, Back Pain, Hand Pain, Leg Pain, Foot Pain, Other - Medications/Allergies Allergies/Adverse Reactions: Allergies Allergy/AdvReac Type Severity Reaction Status Date / Time Penicillins Allergy Verified 07/30/17 22:37 Medications: Current Medications Acetaminophen (Tylenol) 650 mg PO Q4H PRN PRN Reason: Headache/Fever or Pain Last Admin: 08/03/17 20:44 Dose: 650 mg Al Hydroxide/Mg Hydroxide (Maalox) 30 ml PO Q6H PRN PRN Reason: Heartburn or Indigestion Artificial Tears (Tears Naturale) 0 drop EA EYE PRN PRN PRN Reason: Dry Eyes Atorvastatin Calcium (Lipitor) 10 mg PO HS [facility] Last Admin: 08/03/17 20:39 Dose: 10 mg Bupropion HCl (Wellbutrin Sr) 150 mg PO DAILY [facility] Last Admin: 08/03/17 09:22 Dose: 150 mg Carvedilol (Coreg) 6.25 mg PO BID [facility] Last Admin: 08/03/17 20:39 Dose: 6.25 mg Diltiazem HCl (Cardizem Cd) 120 mg PO DAILY [facility] Last Admin: 08/03/17 09:23 Dose: 120 mg Docusate Sodium (Colace) 100 mg PO BID [facility] Last Admin: 08/03/17 20:39 Dose: 100 mg Enoxaparin Sodium (Lovenox) 60 mg SC 0900,2100 [facility] Last Admin: 08/03/17 20:36 Dose: 60 mg Famotidine (Pepcid) 20 mg PO BID [facility] Last Admin: 08/03/17 20:38 Dose: 20 mg Furosemide (Lasix) 20 mg SLOW IVP 0600,1400 [facility] Last Admin: 08/03/17 13:01 Dose: 20 mg Guaifenesin (Robitussin Sf) 200 mg PO Q4H PRN PRN Reason: Cough Hydralazine HCl (Apresoline) 10 mg SLOW IVP Q4H PRN PRN Reason: Systolic BP > 180 Lisinopril (Zestril) 2.5 mg PO DAILY [facility] Last Admin: 08/03/17 09:23 Dose: 2.5 mg Loperamide HCl (Imodium) 2 mg PO PRN PRN PRN Reason: Diarrhea/Loose Stools Loratadine (Claritin) 10 mg PO DAILYPRN PRN PRN Reason: Sinus Symptoms Magnesium Hydroxide (Milk Of Magnesium) 30 ml PO DAILYPRN PRN PRN Reason: Constipation Mineral Oil/White Petrolatum (Eucerin Cream) 0 gm TOP BIDPRN PRN PRN Reason: Dry Skin Ondansetron HCl (Zofran Odt) 4 mg PO Q6H PRN PRN Reason: Nausea/Vomiting Ondansetron HCl (Zofran) 4 mg IVP Q6H PRN PRN Reason: Nausea/Vomiting Phenol (Chloraseptic [place] 180 Ml Bot) 0 ml PO PRN PRN PRN Reason: Sore Throat Potassium Chloride (K-Dur) 20 meq PO BID-[facility] Last Admin: 08/03/17 18:03 Dose: 20 meq Sodium Chloride (Flush - Normal Saline) 10 ml IVF Q12HR [facility] Last Admin: 08/03/17 20:36 Dose: 10 ml Sodium Chloride (Flush - Normal Saline) 10 ml IVF PRN PRN PRN Reason: Saline Flush Last Admin: 08/03/17 13:01 Dose: 10 ml Sodium Chloride ([place] Nasal [place] 0.65%) 0 ml EA NARE QIDPRN PRN PRN Reason: Nasal Congestion Spironolactone (Aldactone) 12.5 mg PO QAM-[facility] Last Admin: 08/03/17 09:23 Dose: 12.5 mg Temazepam (Restoril) 15 mg PO HSPRN PRN PRN Reason: Insomnia Last Admin: 08/03/17 22:14 Dose: 15 mg Tramadol HCl (Ultram) 50 mg PO Q4H PRN PRN Reason: Moderate Pain (4-6)
[2017-08-04] MEDS: Furosemide 20 MG/2 ML VIAL SLOW IVP SCH ×2 (06:09→14:48)
[2017-08-04 06:11] LABS: Anion Gap 12 mmol/L (10-20); BUN (Urea Nitrogen) 13 mg/dL (9.8-20.1); Calc. Creatinine Clearance 101 mL/min (70-130); Calcium 8.5 mg/dL (7.8-10.44); Carbon Dioxide 25 mmol/L (23-31); Chloride 103 mmol/L (98-107); Estimated GFR-MDRD Greater than 90; Glucose 75 mg/dL (80-115); Magnesium 1.9 mg/dL (1.6-2.6); Potassium 3.7 mmol/L (3.5-5.1); Sodium 136 mmol/L (136-145)
[2017-08-04 06:42] LABS: Folate (Folic Acid) 11.2 ng/mL (7.0-31.4)
[2017-08-04] MEDS: Bupropion 150 MG SR TAB PO SCH (09:19)
[2017-08-04] MEDS: Spironolactone 25 MG TAB PO SCH (09:19)
[2017-08-04] MEDS: Lisinopril 2.5 MG TAB PO SCH (09:19)
[2017-08-04] MEDS: Potassium Chloride 20 MEQ TAB PO SCH ×2 (09:19→16:53)
[2017-08-04] MEDS: Carvedilol 6.25 MG TAB PO SCH ×2 (09:19→20:22)
[2017-08-04] MEDS: Famotidine 20 MG TAB PO SCH ×2 (09:19→20:22)
[2017-08-04] MEDS: Enoxaparin Sodium 60 MG/0.6 ML SYRINGE SC SCH ×2 (09:21→20:23)
[2017-08-04] MEDS: Docusate 100 MG CAP PO SCH ×2 (10:35→20:22)
[2017-08-04] MEDS: Atorvastatin Calcium 10 MG TAB PO SCH (20:22)
[2017-08-04] MEDS: Temazepam 15 MG CAP PO PRN (23:16)
[2017-08-05] MEDS: Furosemide 20 MG/2 ML VIAL SLOW IVP SCH (06:04)
[2017-08-05] MEDS ORDERED: Communication Order-Pharmacy FS SCH (08:45)
[2017-08-05] MEDS: Potassium Chloride 20 MEQ TAB PO SCH (08:50)
[2017-08-05] MEDS: Bupropion 150 MG SR TAB PO SCH (08:51)
[2017-08-05] MEDS: Spironolactone 25 MG TAB PO SCH (08:51)
[2017-08-05] MEDS: Docusate 100 MG CAP PO SCH ×2 (08:51→21:05)
[2017-08-05] MEDS: Carvedilol 6.25 MG TAB PO SCH ×2 (08:51→21:04)
[2017-08-05] MEDS: Lisinopril 2.5 MG TAB PO SCH (08:52)
[2017-08-05] MEDS: Famotidine 20 MG TAB PO SCH ×2 (08:52→21:04)
[2017-08-05] MEDS: Sodium Chloride 0.9% 1,000 ML IV SCH ×2 (09:24→21:07)
--- NOTE | 2017-08-05 09:48 | PDOC.PN ---
- Subjective Encounter Start Date: 08/05/17 Encounter Start Time: 08:00 Patient seen and examined. No new complaints. No overnight events - Objective Resuscitation Status: Resuscitation Status DNR:Do Not Resuscitate MAR Reviewed: Yes Vital Signs & Weight: Vital Signs (12 hours) Temp Pulse Resp BP BP BP Pulse Ox 08/05/17 08:52 91 08/05/17 08:51 91 115/79 08/05/17 08:44 97.7 F 91 15 115/77 96 08/05/17 00:00 97.8 F 89 20 129/91 H 96 Weight Admit Weight 174 lb 3.2 oz Weight 168 lb 7 oz I&O: 08/04/17 08/05/17 08/06/17 06:59 06:59 06:59 Intake Total 1600 600 Output Total 750 650 Balance 850 -50 Result Diagrams: 08/03/17 04:53 08/04/17 05:06 EKG Reviewed by me: Yes Phys Exam - Physical Examination Constitutional: NAD HEENT: PERRLA, moist MMs, sclera anicteric Neck: no JVD, supple Respiratory: no wheezing, no rales, no rhonchi Cardiovascular: no significant murmur, irregular Gastrointestinal: soft, non-tender, no distention, positive bowel sounds Musculoskeletal: no edema, pulses present Neurological: non-focal Lymphatic: no nodes Psychiatric: normal affect Skin: no rash, normal turgor Dx/Plan (1) Acute systolic ACC/AHA stage C congestive heart failure Code(s): I50.21 - ACUTE SYSTOLIC (CONGESTIVE) HEART FAILURE Status: Acute (2) Atrial fibrillation with RVR Code(s): I48.91 - UNSPECIFIED ATRIAL FIBRILLATION Status: Acute Comment: controlled (3) Hypokalemia Code(s): E87.6 - HYPOKALEMIA Status: Acute (4) Hypomagnesemia Code(s): E83.42 - HYPOMAGNESEMIA Status: Acute (5) Pulmonary hypertension Code(s): I27.20 - PULMONARY HYPERTENSION, UNSPECIFIED Status: Acute (6) Severe mitral regurgitation Code(s): I34.0 - NONRHEUMATIC MITRAL (VALVE) INSUFFICIENCY Status: Acute (7) Severe tricuspid regurgitation Code(s): I07.1 - RHEUMATIC TRICUSPID INSUFFICIENCY Status: Acute (8) Anxiety Code(s): F41.9 - ANXIETY DISORDER, UNSPECIFIED Status: Chronic (9) Hypertension Code(s): I10 - ESSENTIAL (PRIMARY) HYPERTENSION Status: Chronic (10) Macrocytosis Code(s): D75.89 - OTHER SPECIFIED DISEASES OF BLOOD AND BLOOD-FORMING ORGANS Status: Chronic - Plan cont current plan of care * medication reviewed as below * symptomatic treatment * stable medically * today cardiac cath. Review of Systems - Review of Systems Eyes: negative: Pain, Vision Change, Conjunctivae Inflammation, Eyelid Inflammation, Redness, Other ENT: negative: Ear Pain, Ear Discharge, Nose Pain, Nose Discharge, Nose Congestion, Mouth Pain, Mouth Swelling, Throat Pain, Throat Swelling, Other Respiratory: negative: Cough, Dry, Shortness of Breath, Hemoptysis, SOB with Excertion, Pleuritic Pain, Sputum, Wheezing Cardiovascular: negative: chest pain, palpitations, orthopnea, paroxysmal nocturnal dyspnea, edema, light headedness, other Gastrointestinal: negative: Nausea, Vomiting, Abdominal Pain, Diarrhea, Constipation, Melena, Hematochezia, Other Genitourinary: negative: Dysuria, Frequency, Incontinence, Hematuria, Retention , Other Musculoskeletal: negative: Neck Pain, Shoulder Pain, Arm Pain, Back Pain, Hand Pain, Leg Pain, Foot Pain, Other Skin: negative: Rash, Lesions, Yaw, Bruising, Other - Medications/Allergies Allergies/Adverse Reactions: Allergies Allergy/AdvReac Type Severity Reaction Status Date / Time Penicillins Allergy Verified 07/30/17 22:37 Medications: Current Medications Acetaminophen (Tylenol) 650 mg PO Q4H PRN PRN Reason: Headache/Fever or Pain Last Admin: 08/03/17 20:44 Dose: 650 mg Al Hydroxide/Mg Hydroxide (Maalox) 30 ml PO Q6H PRN PRN Reason: Heartburn or Indigestion Artificial Tears (Tears Naturale) 0 drop EA EYE PRN PRN PRN Reason: Dry Eyes Atorvastatin Calcium (Lipitor) 10 mg PO HS [facility] Last Admin: 08/04/17 20:22 Dose: 10 mg Bupropion HCl (Wellbutrin Sr) 150 mg PO DAILY [facility] Last Admin: 08/05/17 08:51 Dose: 150 mg Carvedilol (Coreg) 6.25 mg PO BID [facility] Last Admin: 08/05/17 08:51 Dose: 6.25 mg Diltiazem HCl (Cardizem Cd) 120 mg PO DAILY [facility] Last Admin: 08/05/17 08:51 Dose: 120 mg Docusate Sodium (Colace) 100 mg PO BID [facility] Last Admin: 08/05/17 08:51 Dose: 100 mg Famotidine (Pepcid) 20 mg PO BID [facility] Last Admin: 08/05/17 08:52 Dose: 20 mg Furosemide (Lasix) 20 mg SLOW IVP 0600,1400 [facility] Last Admin: 08/05/17 06:04 Dose: 20 mg Guaifenesin (Robitussin Sf) 200 mg PO Q4H PRN PRN Reason: Cough Hydralazine HCl (Apresoline) 10 mg SLOW IVP Q4H PRN PRN Reason: Systolic BP > 180 Sodium Chloride (Normal Saline 0.9%) 1,000 mls @ 100 mls/hr IV .Q10H [facility] Last Admin: 08/05/17 09:24 Dose: 1,000 mls Lisinopril (Zestril) 2.5 mg PO DAILY [facility] Last Admin: 08/05/17 08:52 Dose: 2.5 mg Loperamide HCl (Imodium) 2 mg PO PRN PRN PRN Reason: Diarrhea/Loose Stools Loratadine (Claritin) 10 mg PO DAILYPRN PRN PRN Reason: Sinus Symptoms Magnesium Hydroxide (Milk Of Magnesium) 30 ml PO DAILYPRN PRN PRN Reason: Constipation Mineral Oil/White Petrolatum (Eucerin Cream) 0 gm TOP BIDPRN PRN PRN Reason: Dry Skin Miscellaneous Information (Communication Order-Pharmacy) 0 each FS ONE [facility] Stop: 08/05/17 21:00 Ondansetron HCl (Zofran Odt) 4 mg PO Q6H PRN PRN Reason: Nausea/Vomiting Ondansetron HCl (Zofran) 4 mg IVP Q6H PRN PRN Reason: Nausea/Vomiting Phenol (Chloraseptic [place] 180 Ml Bot) 0 ml PO PRN PRN PRN Reason: Sore Throat Potassium Chloride (K-Dur) 20 meq PO BID-[facility] Last Admin: 08/05/17 08:50 Dose: 20 meq Sodium Chloride (Flush - Normal Saline) 10 ml IVF Q12HR [facility] Last Admin: 08/05/17 08:52 Dose: 10 ml Sodium Chloride (Flush - Normal Saline) 10 ml IVF PRN PRN PRN Reason: Saline Flush Last Admin: 08/03/17 13:01 Dose: 10 ml Sodium Chloride ([place] Nasal [place] 0.65%) 0 ml EA NARE QIDPRN PRN PRN Reason: Nasal Congestion Spironolactone (Aldactone) 12.5 mg PO QAM-[facility] Last Admin: 08/05/17 08:51 Dose: 12.5 mg Temazepam (Restoril) 15 mg PO HSPRN PRN PRN Reason: Insomnia Last Admin: 08/04/17 23:16 Dose: 15 mg Tramadol HCl (Ultram) 50 mg PO Q4H PRN PRN Reason: Moderate Pain (4-6)
[2017-08-05] MEDS ORDERED: Lidocaine 1% (PF) 30 ML VIAL ONE (11:24)
[2017-08-05] MEDS ORDERED: Fentanyl 100 MCG/2 ML VIAL ONE (11:24)
[2017-08-05] MEDS ORDERED: Midazolam HCl 2 mg/2 ml Vial ONE (11:24)
[2017-08-05] MEDS ORDERED: Iopamidol 370 76% 100 ML VIAL ONE (14:03)
[2017-08-05 14:32] VITALS: BMI 28.0
[2017-08-05] MEDS: Furosemide 20 MG TAB PO SCH (15:00)
[2017-08-05] MEDS: Atorvastatin Calcium 10 MG TAB PO SCH (21:05)
[2017-08-05 21:21] LABS: Hemoglobin 16.5 g/dL (12.0-16.0); Platelet Count 129 thou/uL (130-400)
[2017-08-06] MEDS: Sodium Chloride 0.9% 1,000 ML IV SCH (03:12)
[2017-08-06] MEDS: Spironolactone 25 MG TAB PO SCH (08:50)
[2017-08-06] MEDS: Docusate 100 MG CAP PO SCH (08:51)
[2017-08-06] MEDS: Bupropion 150 MG SR TAB PO SCH (08:51)
[2017-08-06] MEDS: Furosemide 20 MG TAB PO SCH ×2 (08:51→15:19)
[2017-08-06] MEDS: Carvedilol 6.25 MG TAB PO SCH ×2 (08:51→15:19)
[2017-08-06] MEDS: Lisinopril 2.5 MG TAB PO SCH (08:51)
[2017-08-06] MEDS: Famotidine 20 MG TAB PO SCH (08:51)
[2017-08-06] MEDS ORDERED: Apixaban 5 MG TAB PO SCH (09:00)
[2017-08-06 18:32] VITALS: BP 116/91; TEMP 95.9
--- NOTE | 2017-08-06 18:34 | PRG ---
DATE OF SERVICE: 08/06/2017 SUBJECTIVE: Ms. Henning is doing well. She underwent coronary angiography, not found to have signif icant coronary artery disease. OBJECTIVE: VITAL SIGNS: Blood pressure 140/91, pulse 80, temperature 98.3. LUNGS: Clear to auscultation. CARDIAC: Irregularly irregular. ABDOMEN: Soft, nontender, nondistended. EXTREMITIES: No edema. IMPRESSION: 1. Atrial fibrillation. 2. Nonischemic cardiomyopathy. RECOMMENDATIONS: 1. LifeVest. 2. Anticoagulation therapy with Eliquis. 3. Rate control with carvedilol and plan on cardioversion given low EF as an outpatient. We will ad d amiodarone therapy. Once LifeVest was placed, it is okay from my standpoint to discharge home with close outpatient galindo lopez.
--- NOTE | 2017-08-07 10:39 | DIS ---
DATE OF DISCHARGE: 08/06/2017 DISCHARGE DISPOSITION: Home with LifeVest. FOLLOWUP: Follow up with Dr. Ana Newton, at [facility] in 1 week. The patient was seen and examined on the day of discharge. Denies any new complaints, no chest pain, shortness of breath, or palpitations reported. ALLERGIES: Patient is allergic to PENICILLIN. DISCHARGE MEDICATIONS: Eliquis 5 mg twice a day, Lipitor 10 mg at bedtime, bupropion 150 mg daily, c arvedilol 6.25 mg 3 times a day, Pepcid 20 mg twice a day, Lasix 20 mg twice a day, lisinopril 2.5 mg daily, Aldactone 12.5 mg daily. Basic metabolic panel after 1 week is recommended. Primary care physician is advised to follow. Ris ks not limited to life-threatening bleeding secondary to anticoagulation was discussed with the nic noriega. She stated understanding. BRIEF HOSPITAL COURSE: The patient is a 71-year-old female with hypertension and atrial fibrillation in the past, currently not taking any medications, presented to the emergency room with shortness of breath. Please refer to the history and physical dated 07/30/2017 for further details. The patient was admitted to the hospital with a diagnosis of new onset systolic heart failure and atr ial fibrillation with rapid ventricular response, requiring Cardizem drip. She showed good improveme nt with diuretics. Her weight on the day of discharge was 150 pounds from 174 pounds on admission. She was extensively counseled on heart failure. Cardizem drip was later discontinued. Rate is contr olled on carvedilol. Echocardiogram showed left ventricular ejection fraction 30%-35% with severe mi tral regurgitation, [id number] tricuspid regurgitation. A cardiac catheterization was perfor med. Official report is pending at this time. Her congestive heart failure is secondary to nonische humberto cardiomyopathy per Cardiology report. She will be discharged home with LifeVest later today once cleared by Cardiology. FINAL DIAGNOSES: 1. Atrial fibrillation with rapid ventricular response. The patient has been started on anticoagula tion, currently on rate control. 2. New onset systolic heart failure exacerbation, improved with diuretics. Patient will be discharg ed home with diuretics, lisinopril, and Aldactone. Coreg 6.25 mg 3 times a day. A basic metabolic p precious after 1 week is recommended. 3. Hypokalemia, corrected. 4. Hypertension. 5. Elevated troponin secondary to demand ischemia. 6. Upper respiratory tract infection, resolved. 7. Suspected urinary tract infection. Urine cultures showed 25,000-50,000 mixed skin epifanio. Antibi otics have been discontinued. Total time coordinating the discharge of this patient was 38 minutes. Again, risks not limited to li fe-threatening bleeding was recommended. The patient stated understanding. Fall precaution with 24- hour supervision will be beneficial.
== END 2017-08-06 19:23 | disposition home or self-care (01) | DRG 286 ==
LOC: ERS 16:04 → 2NO 19:46
PROVIDERS: ADMIT Family Medicine; ATTEND Family Medicine
PROC: 4A023N7 Measurement of Cardiac Sampling and Pressure, Left Heart, Percutaneous Approach (ICD-10-PCS; principal; 2017-08-05)
PROC: B2111ZZ Fluoroscopy of Multiple Coronary Arteries using Low Osmolar Contrast (ICD-10-PCS; 2017-08-05)
PROC: B2151ZZ Fluoroscopy of Left Heart using Low Osmolar Contrast (ICD-10-PCS; 2017-08-05)
DX: I48.91 Unspecified atrial fibrillation (principal); I50.21 Acute systolic (congestive) heart failure; I27.20 Pulmonary hypertension, unspecified; I24.8 Other forms of acute ischemic heart disease; E83.42 Hypomagnesemia; I08.1 Rheumatic disorders of both mitral and tricuspid valves; I42.9 Cardiomyopathy, unspecified; L97.429 Non-pressure chronic ulcer of left heel and midfoot with unspecified severity; I10 Essential (primary) hypertension; J06.9 Acute upper respiratory infection, unspecified; F41.9 Anxiety disorder, unspecified; E87.6 Hypokalemia; Z66 Do not resuscitate; Z88.0 Allergy status to penicillin; Z79.899 Other long term (current) drug therapy
CPT/HCPCS: 36415; 71045; 76942; 80048; 80061; 81001; 81003; 81015; 82553; 82565; 82607; 82746; 83735; 83880; 84443; 84484; 85014; 85018; 85025; 85049; 85610; 87086; 93005; 93306; 93458; 93798; 93923; 93970; 94760; 96374; 99152; A4216; C1760; C1769; J1644; J1650; J1940; J2001; J2250; J3010; J3475; J7050

== ENCOUNTER 2018-04-03 07:00 | Day surgery (SDC) | payer MEDICARE, MEDICAID ==
[2018-04-03 08:25] LABS: #Eosinphils 0.1 thou/uL (0.0-0.7); #Lymphocytes 1.6 thou/uL (1.20-3.40); #Monocytes 0.6 thou/uL (0.11-0.59); %Basophils 0.1 % (0.0-1.0); %Eosinophils 2.4 % (0.0-10.0); %Lymphocytes 25.2 % (21.0-51.0); %Monocytes 8.8 % (0.0-10.0); %Neutrophils 63.6 % (42.0-75.0); Mean Corpuscular HGB CONC 34.4 g/dL (32.0-36.0); Mean Corpuscular Hemoglobin 33.1 pg (27.0-31.0); Mean Corpuscular Volume 96.3 fL (78.0-98.0); Mean Platelet Volume 7.3 fL (7.4-10.4); Platelet Count 182 thou/uL (130-400); RBC Distribution Width 11.6 % (11.5-14.5); Red Blood Cell (RBC) Count 3.92 mill/uL (4.20-5.40); White Blood Cell (WBC) Count 6.3 thou/uL (4.8-10.8)
[2018-04-03] MEDS ORDERED: PROPOFOL 20 ML ONE (08:29)
[2018-04-03 08:33] LABS: INR-International Normal Ratio 1.4; PTT 32.7 SEC (22.9-36.1); Prothrombin Time 17.1 SEC (12.0-14.7)
[2018-04-03 08:38] LABS: Anion Gap 15 mmol/L (10-20); BUN (Urea Nitrogen) 20 mg/dL (9.8-20.1); Calc. Creatinine Clearance 0 mL/min (70-130); Calcium 9.4 mg/dL (7.8-10.44); Carbon Dioxide 27 mmol/L (23-31); Chloride 102 mmol/L (98-107); Estimated GFR-MDRD 34; Glucose 88 mg/dL (80-115); Potassium 3.7 mmol/L (3.5-5.1); Sodium 140 mmol/L (136-145)
--- NOTE | 2018-04-03 19:49 | OP ---
DATE OF PROCEDURE: 04/03/2018 TYPE OF REPORT: Internal cardioversion report. REASON FOR PROCEDURE: Ms. Henning is a 72-year-old white female with history of chronic systolic heart failure, nonischemic cardiomyopathy, dual-chamber ICD implant in November of this year. She has a history of persistent atrial fibrillation, has been on amiodarone since July. Despite the atrial fibrillation persist, she is here for a cardioversion while on full anticoagulation with Eliquis. DESCRIPTION OF PROCEDURE: Initially the ICD was interrogated and found to be adequate. Propofol given by Anesthesia specialist for sedation, burst atrial pacing was attempted, but was unsuccessful to terminate the arrhythmia. At this point, a 35-joule internal shock was delivered, which converted the patient back to sinus rhythm. ICD was interrogated and reprogrammed at the end of the case. Adequate function of the Biotztronic Evera XT DR device was noted functioning adequately. Lead Impedance is 530 and 494 ohms respectively. Atrial ATP therapies were programmed on. Of note, Optival measurements are increasing. CONCLUSION: 1. Successful internal cardioversion. 2. Adequate functioning, dual-chamber ICD. 3. Reprogramming the ICD device as above. PLAN: Continue short-term amiodarone and anticoagulation. Consider long-term alternatives to amiodarone therapy if significant symptomatic improvements achieved with maintaining sinus rhythm. Job ID: [id number] [facility]
== END 2018-04-03 09:50 | disposition home or self-care (01) ==
LOC: CCL 07:00
PROVIDERS: ATTEND Internal Medicine Cardiovascular Disease
PROC: 5A2204Z Restoration of Cardiac Rhythm, Single (ICD-10-PCS; principal; 2018-04-03)
DX: I48.1 Persistent atrial fibrillation (principal); I50.22 Chronic systolic (congestive) heart failure; I42.8 Other cardiomyopathies; Z95.810 Presence of automatic (implantable) cardiac defibrillator; Z79.01 Long term (current) use of anticoagulants; Z79.899 Other long term (current) drug therapy; F03.90 Unspecified dementia, unspecified severity, without behavioral disturbance, psychotic disturbance, mood disturbance, and anxiety; Z88.0 Allergy status to penicillin
CPT/HCPCS: 80048; 85025; 85610; 85730; 92960; 93005; 93010; J2704

== ENCOUNTER 2019-02-04 14:03 | Inpatient (IN) | payer MEDICARE, OTHER ==
[2019-02-04 14:46] LABS: #Eosinphils 0.1 thou/uL (0.0-0.7); #Lymphocytes 0.8 thou/uL (1.20-3.40); #Monocytes 0.4 thou/uL (0.11-0.59); #Neutrophils 6.2 thou/uL (1.40-6.50); %Basophils 0.2 % (0.0-1.0); %Eosinophils 1.6 % (0.0-10.0); %Monocytes 5.3 % (0.0-10.0); %Neutrophils 82.9 % (42.0-75.0); Hemoglobin 12.9 g/dL (12.0-16.0); Mean Corpuscular Hemoglobin 33.3 pg (27.0-31.0); Mean Corpuscular Volume 95.3 fL (78.0-98.0); Mean Platelet Volume 7.9 fL (7.4-10.4); Platelet Count 192 thou/uL (130-400); RBC Distribution Width 11.6 % (11.5-14.5); Red Blood Cell (RBC) Count 3.87 mill/uL (4.20-5.40); White Blood Cell (WBC) Count 7.4 thou/uL (4.8-10.8)
[2019-02-04 15:04] LABS: ALT (SGPT) Less than 7 U/L (8-55); AST (SGOT) 19 U/L (5-34); Albumin 4.4 g/dL (3.4-4.8); Alkaline Phosphatase 122 U/L (40-110); Anion Gap 14 mmol/L (10-20); BUN (Urea Nitrogen) 39 mg/dL (9.8-20.1); Bilirubin, Total 0.7 mg/dL (0.2-1.2); Calc. Creatinine Clearance 0 mL/min (70-130); Calcium 9.5 mg/dL (7.8-10.44); Carbon Dioxide 25 mmol/L (23-31); Chloride 102 mmol/L (98-107); Estimated GFR-MDRD 15; Globulin 3.6 g/dL (2.4-3.5); Glucose 124 mg/dL (83-110); Potassium 4.8 mmol/L (3.5-5.1); Sodium 136 mmol/L (136-145)
--- NOTE | 2019-02-04 15:45 | RAD ---
PORTABLE CHEST ONE VIEW: 02/04/19 at 2:27 p.m. HISTORY: Hypotension. Intermittent dizziness. FINDINGS: The heart size is normal. The aorta is tortuous. There is a left sided pacing device. Lungs are expan ded without lobar consolidation, pneumothoraces or pleural effusions. IMPRESSION: No acute process. POS: TPC
[2019-02-04] MEDS ORDERED: Acetaminophen 325 MG TAB PO PRN (17:17)
[2019-02-04] MEDS ORDERED: Senokot S 8.6-50 MG TAB PO PRN (17:17)
[2019-02-04] MEDS ORDERED: Calcium Carbonate 500 MG ChewTAB PO PRN (17:17)
[2019-02-04] MEDS ORDERED: Ondansetron PF 4 MG/2 ML Vial IVP PRN (17:17)
[2019-02-04] MEDS ORDERED: Ondansetron ODT 4 MG TAB PO PRN (17:17)
--- NOTE | 2019-02-04 18:06 | HP ---
PRIMARY CARE PHYSICIAN: Dr. Ana Newton at [facility]. PRIMARY CUSTOMER ASSISTANCE REPRESENTATIVE: Dr. Drew Ho. PRIMARY TEAM AUTOMOBILE ASSEMBLER: Dr. Faustin. CHIEF COMPLAINT: Hypotension. HISTORY OF PRESENT ILLNESS: The patient is a 73-year-old female with chronic systolic heart failure, status post AICD, currently on KENNEY inhibitor, Lasix, and carvedilol, presented to the hospital with above complaints. She is currently followed by Dr. Ho for CKD. She recently had a blood work as outpatient that showed creatinine of 2.95. Baseline creatinine last year was 0.72. She felt fine this morning. She was scheduled to see Dr. Ho, construction controller today. However, at the clinic, she started feeling lightheaded and dizzy. There was no syncope reported. No focal neurologic deficit reported. She was found to have hypotensive with blood pressure of 60s to 70s. She was sent to the emergency room for evaluation. She does not drink too much water. She consumes sodas on the daily basis per family. She has history of dementia and not much information is available from the patient. History was obtained from the son at the bedside. PAST MEDICAL HISTORY: 1. Chronic systolic heart failure, ejection fraction 25% range, status post AICD. 2. Paroxysmal atrial fibrillation, on anticoagulation. 3. Hypertension. 4. Dementia. 5. Hypothyroidism. 6. Depression. MARLENY JOHNSON SURGICAL HISTORY: 1. AICD placement. 2. Cardiac catheterization. 3. Hysterectomy. 4. Cholecystectomy. ALLERGIES: THE PATIENT IS ALLERGIC TO PENICILLIN. CURRENT HOME MEDICATIONS: Confirmed with the medication bottles at the bedside; 1. Carvedilol 12.5 mg b.i.d. 2. Levothyroxine 50 mcg daily. 3. Lisinopril 5 mg daily. 4. Namenda 10 mg b.i.d. 5. Zyprexa 2.5 mg daily. 6. Eliquis 5 mg b.i.d.. 7. Lipitor 10 mg at bedtime. 8. Lasix 20 mg b.i.d. SOCIAL HISTORY: The patient is a former smoker. She quit smoking many years ago. She is . Lives at home with her son, who is the surrogate decision maker. She is full code. REVIEW OF SYSTEMS: Cannot be reliably obtained from the patient due to current mentation. FAMILY HISTORY: Positive for diabetes mellitus type 2. PHYSICAL EXAMINATION: VITAL SIGNS: In the emergency room showed temperature 97.6, respirations 18, pulse of 63, blood pressure of 80/48, O2 saturations of 100% on room air. GENERAL: A 73-year-old female, in no apparent distress, feels better with IV fluids. HEENT: Head, atraumatic and normocephalic. Sclerae are anicteric. Dry mucous are membranes. No oral lesion. NECK: Supple. No JVD. No carotid bruit. LUNGS: Showed diminished air entry at bilateral bases. No wheezing, rales, or rhonchi. HEART: S1 and S2 present. Regular rate and rhythm. No rubs or gallops. AICD noted. ABDOMEN: Soft, nontender. Bowel sounds are present. EXTREMITIES: No edema or calf tenderness. NEUROLOGIC: Grossly nonfocal. Moves all 4 extremities. PSYCHIATRY: Alert, awake, oriented x3. Poor historian. SKIN: Warm and dry. LYMPH NODES: No palpable lymph nodes in the neck. PERIPHERAL VASCULAR: Radial pulses palpable bilaterally. MUSCULOSKELETAL: No joint swelling or tenderness. LABORATORY FINDINGS: WBC 7.4 with hemoglobin 12.9, hematocrit 36.9, platelet 192. Chemistry showed sodium 136, potassium 4.8, chloride 102, bicarb 25, BUN 39, creatinine 2.99. Troponin was negative. IMAGING STUDIES: Chest x-ray by my review was negative for infiltrate or edema. Her EKG by my review showed paced rhythm. IMPRESSION: 1. Acute kidney injury on chronic kidney disease, stage 3, multifactorial. The patient is on Lasix, lisinopril, and carvedilol. We will rule out obstructive uropathy. Most likely volume mediated. 2. Dizziness secondary to #1. 3. Chronic systolic heart failure, status post automatic implantable cardioverter-defibrillator. 4. History of hypertension. 5. Paroxysmal atrial fibrillation, on anticoagulation. 6. Penicillin allergy. 7. Dementia. 8. Depression, mild, stable. 9. Hyperlipidemia. 10. Hypothyroidism. PLAN: The patient will be monitored on the medical floor overnight. We will continue gentle IV hydration. The patient was extensively counseled to monitor her fluid on a daily basis as well as daily weight monitoring. We will recheck labs in a.m. We will hold Lasix, lisinopril, and carvedilol for now. We will check orthostatic vitals in a.m. We will reduce Eliquis dose due to GFR of 15. Plan of care was discussed with the patient and the son at the bedside. They stated understanding. Job ID: [id number]
[2019-02-04 19:11] VITALS: BMI 26.1
[2019-02-04] MEDS: Atorvastatin Calcium 10 MG TAB PO SCH (20:08)
[2019-02-04] MEDS: OLANZapine 2.5 MG TAB PO SCH (20:08)
[2019-02-04] MEDS: Apixaban 2.5 MG TAB PO SCH (20:08)
[2019-02-04] MEDS: Sodium Chloride 0.9% 1,000 ML IV SCH (20:10)
[2019-02-05] MEDS: Sodium Chloride 0.9% 1,000 ML IV SCH ×3 (05:59→18:28)
[2019-02-05] MEDS: Levothyroxine Sodium 50 MCG TAB PO SCH (06:03)
[2019-02-05 06:16] LABS: Anion Gap 13 mmol/L (10-20); BUN (Urea Nitrogen) 31 mg/dL (9.8-20.1); Calc. Creatinine Clearance 29 mL/min (70-130); Calcium 8.2 mg/dL (7.8-10.44); Carbon Dioxide 23 mmol/L (23-31); Chloride 107 mmol/L (98-107); Estimated GFR-MDRD 24; Glucose 79 mg/dL (83-110); Magnesium 2.4 mg/dL (1.6-2.6); Sodium 139 mmol/L (136-145)
--- NOTE | 2019-02-05 08:27 | ULT ---
US Renal Bilateral STANDARD History: Acute kidney injury Comparison: None. Findings: Real-time grayscale and color evaluation of the kidneys and urinary bladder was performed. Right kidney measures 9.9 x 3.9 x 4.2 cm and the left kidney measures 10 x 4.3 x 4.6 cm. No renal mas s, hydronephrosis, or abnormal calcifications. Urinary bladder volume prevoid is 347 cc. Impression: No evidence for obstructive uropathy.
[2019-02-05] MEDS: Apixaban 2.5 MG TAB PO SCH ×2 (08:44→21:07)
[2019-02-05] MEDS ORDERED: FLU VACC TS2019-20(65YR UP)/PF 180 MCG/0.5 ML SYRINGE IM ONE (09:00)
[2019-02-05] MEDS ORDERED: Sodium Chloride 0.9% 500 ML IV SCH (09:30)
--- NOTE | 2019-02-05 10:06 | CON ---
DATE OF CONSULTATION: REASON FOR CONSULTATION: Hypotension. HISTORY OF PRESENT ILLNESS: Ms. Henning is a very pleasant 73-year-old woman, whom I have seen and evaluated in the past. She has a history of nonischemic cardiomyopathy, status post ICD placement, who was seen and evaluated by Nephrology. She was found to be hypotensive with symptoms of dizziness. No chest pain, pressure, shortness of breath, or other associated symptoms. During my encounter, the patient's blood pressure on standing was 75 systolic. She is completely asymptomatic. She does state she has had poor p.o. intake. Her creatinine has also increased over the last several months. PAST MEDICAL HISTORY: Chronic systolic heart failure, paroxysmal atrial fibrillation, status post ICD, nonischemic cardiomyopathy, hysterectomy, dementia, and depression. HOME MEDICATIONS: Include, 1. Levothyroxine. 2. Atorvastatin. 3. Memantine. 4. Lasix. 5. Eliquis. 6. Spironolactone. 7. Amiodarone. 8. Lisinopril. 9. Carvedilol. 10. Famotidine. SOCIAL HISTORY: No current tobacco or alcohol use. REVIEW OF SYSTEMS: A 10-point review of systems is reviewed as above, otherwise negative. PHYSICAL EXAMINATION: GENERAL: Patient is a pleasant woman who is in no acute distress. The patient appears their stated age. VITAL SIGNS: Blood pressure 78/51, pulse 60, and temperature 97.6. NEUROLOGIC: The patient is alert and oriented x3 with no focal neurologic deficits. HEENT: Sclerae without icterus. Mouth has moist mucous membranes with normal pallor. NECK: No JVD. Carotid upstroke brisk. No bruits bilaterally. LUNGS: Clear to auscultation with unlabored respirations. BACK: No scoliosis or kyphosis. CARDIAC: Regular rate and rhythm with normal S1 and S2. No S3 or S4 noted. No significant rubs, murmurs, thrills, or gallops noted throughout the precordium. PMI is not displaced. There is no parasternal heave. ABDOMEN: Soft, nontender, nondistended. No peritoneal signs present. No hepatosplenomegaly. No abnormal striae. EXTREMITIES: 2+ femoral and 2+ dorsalis pedis pulses. No cyanosis, clubbing, or edema. SKIN: No gross abnormalities. PERTINENT LABORATORY DATA: Hemoglobin 12.9, hematocrit 36.9. Creatinine 2.03, which is down from 2.99, BUN of 31, troponin negative. IMPRESSION: 1. Hypotension, likely volume contraction. 2. Nonischemic cardiomyopathy. 3. Atrial fibrillation. RECOMMENDATIONS: Ms. Henning' hypotension likely related to volume contraction. Her BUN and creatinine are elevated over the last several months. She has responded well to 1 L fluid. We will give additional 500 mL of fluid. May consider blood cultures x2. May also consider . At this point, she will likely need to be transferred to telemetry monitoring does appear asymptomatic. This is not related to bleed given a stable hemoglobin. Job ID: [id number]
[2019-02-05 10:22] LABS: Bilirubin Negative (Negative); Blood, Urine Negative (Negative); Clarity Clear (Clear); Glucose, Urine (Dipstick) Normal (Negative); Leukocyte 250 Leu/uL (Negative); Nitrite Negative (Negative); Protein, Urine (Dipstick) Negative (Neg-Trace); RBC/HPF 0-3 HPF (0-3); Squamous Epithelial 0-3 HPF (0-3); Urobilinogen Normal mg/dL (Less than 2)
[2019-02-05 10:26] LABS: Creatinine, Urine 54.86 mg/dL (47-110); Protein, Urine Random Quant Less than 10 mg/dL (1-14); Sodium, Urine 43 mmol/L (Not Available)
[2019-02-05 10:38] LABS: Bacteria/HPF None Seen HPF (None Seen)
[2019-02-05 10:40] LABS: Urine Culture Reflex Yes Yes
--- NOTE | 2019-02-05 12:51 | CON ---
DATE OF CONSULTATION: 02/05/2019 SERVICE: Nephrology. REASON FOR CONSULTATION: Acute kidney injury. REQUESTING PHYSICIAN: Rebeca Flores MD HISTORY OF PRESENT ILLNESS: 73-year-old female with known history of cardiomyopathy with ejection fraction in 30s, chronic systolic heart failure, who was brought in at the recommendation of the cnmt for further evaluation and treatment of hypotension. The patient with baseline creatinine of 0.72, was noted to have creatinine of 2.95 on recent blood work done by the cnmt. The patient also was noted to be hypotensive at the cnmt's office today, hence referral to the emergency room. The patient with dementia. Denied any symptoms of nausea, vomiting, and reportedly feels great. She does not know why she is in the hospital other than the son brought her over. There was no history of syncope or passing out. The patient, however, was found to have blood pressure of 60s to 80s systolic in the ER. The patient also denied dysuria, hematuria, leg swelling, change in bowel habit, or diarrhea. She reported that appetite has been great and she has been eating well. There is also no history of shortness of breath, fever, chills, rigors, or focal weakness. PAST MEDICAL HISTORY: 1. Cardiomyopathy status post AICD. 2. Chronic systolic heart failure. 3. Paroxysmal atrial fibrillation, on anticoagulation. 4. Hypertension. 5. Dementia. 6. Hypothyroidism. 7. Depression. PAST SURGICAL HISTORY: 1. Cardiac catheterization. 2. Hysterectomy. 3. Cholecystectomy. 4. AICD placement. FAMILY HISTORY: This is limited due to the patient's condition. The review of medical records showed that there is positive history of diabetes in family. SOCIAL HISTORY: The patient lives at home with son who is the surrogate decision maker. She is a former smoker who quit several years ago. ALLERGIES: PENICILLIN. HOME MEDICATIONS: 1. Carvedilol 12.5 mg p.o. b.i.d. 2. Levothyroxine 50 mcg p.o. daily. 3. Lisinopril 5 mg p.o. daily. 4. Memantine 10 mg p.o. b.i.d. 5. Zyprexa 2.5 mg p.o. daily at bedtime. 6. Eliquis 5 mg p.o. b.i.d. 7. Lipitor 10 mg p.o. daily at bedtime. 8. Furosemide 20 mg p.o. b.i.d. CURRENT HOSPITAL MEDICATIONS: 1. Eliquis 2.5 mg p.o. b.i.d. 2. Lipitor 10 mg p.o. daily at bedtime. 3. Levothyroxine 50 mcg p.o. daily. 4. Memantine 5 mg p.o. b.i.d. 5. Olanzapine 2.5 mg p.o. daily at bedtime. 6. Calcium carbonate 1000 mg p.o. q.4h. p.r.n. for dyspepsia. 7. Zofran 4 mg q.6h. p.r.n. REVIEW OF SYSTEMS: Pertinent positives and negatives were included in the history of present illness, otherwise negative. The patient, however, has dementia and this limited the review of systems. PHYSICAL EXAMINATION: VITAL SIGNS: Temperature 97.6, pulse 60, respiratory rate 18, SpO2 of 98% on room air, blood pressure is 78/51 standing and 75/46 sitting. GENERAL: Comfortable elderly female, in no obvious distress. Afebrile. Anicteric. Acyanotic. HEENT: Normocephalic, atraumatic. Oral mucosa is moist. NECK: Supple and nontender with no JVD or lymphadenopathy. CARDIOVASCULAR: Regular rhythm and rate with normal heart sounds 1 and 2. RESPIRATORY: Fair air entry bilateral with no obvious crackle or rhonchi or use of accessory muscles. GI: Abdomen is full, soft, nontender, nondistended with normal bowel sounds. EXTREMITIES: Grossly normal looking, atraumatic with no edema or erythema. Distal pulses are palpable. NEUROLOGIC: Conscious, alert, and oriented to person and place. Cranial nerves 2 through 12 are grossly intact. The patient seems appropriate and conversational. Moves all extremities. Some memory lapses, however, were noted. DIAGNOSTIC DATA: CBC on February 04 showed WBC count of 7.4, hemoglobin of 12.9, MCV of 95.3, platelets of 192. BMP today showed sodium 139, potassium 4.0, chloride 107, CO2 of 23, BUN 31, creatinine 2.03, glucose 79, calcium 8.2. Of note, on presentation to the ER on February 04, 2019, potassium was 4.8, sodium 136, chloride 102, CO2 of 25, BUN 39, creatinine 2.99, glucose 124, calcium 9.5, total bilirubin 0.7, AST 19, ALT less than 7, alkaline phosphatase 122, total protein 8.0, albumin 4.6. Serial troponins were unremarkable. Magnesium today is 2.4. Chest x-ray performed on February 04, 2019, showed no acute cardiopulmonary process with no overt consolidation, pneumothorax or pleural effusion. ASSESSMENT: 1. Acute kidney injury: This is most likely prerenal due to hypotension and hypoperfusion of the kidneys. The patient has history of cardiomyopathy, but otherwise denied shortness of breath or syncope. She, however, is on medications of lisinopril, Coreg, and diuretics. These may have caused iatrogenic hypotension leading to hypoperfusion of the kidneys. Acute cardiac decompensation leading to cardiorenal is another consideration. Creatinine is improving already with IV fluid therapy. 2. Hypotension: Either iatrogenic due to medications or due to cardiogenic shock. Occult infection also is a concern. PLAN: 1. Agree with IV fluid therapy. We will continue normal saline. We will monitor closely to avoid fluid overload given history of cardiomyopathy and chronic systolic heart failure. 2. Hold diuretics, lisinopril and Coreg for now. 3. Monitor vitals closely. 4. Get urinalysis with reflex to culture as well as urine electrolytes and renal ultrasound. 5. Further recommendation to follow depending on hospital course and review of other diagnostic tests. Many thanks for involving us in the care of this patient. We will follow along with you. Job ID: [id number]
[2019-02-05] MEDS: OLANZapine 2.5 MG TAB PO SCH (21:07)
[2019-02-05] MEDS: Atorvastatin Calcium 10 MG TAB PO SCH (21:07)
--- NOTE | 2019-02-05 22:46 | PDOC.HOSPP ---
- Subjective Encounter Date: 02/05/19 Encounter Time: 12:00 Subjective: Patient seen and examined for CIELO/Hypotension. Dizziness improving. No new complaints. Overnight events noted. No CP - Objective Vital Signs & Weight: Vital Signs (12 hours) Temp Pulse Resp BP Pulse Ox 02/05/19 16:35 97.4 F L 61 20 90/54 L 99 02/05/19 11:15 98 02/05/19 11:14 98.2 F 63 20 97/62 98 Weight Weight 158 lb 4.8 oz I&O: 02/04/19 02/05/19 02/06/19 06:59 06:59 06:59 Intake Total 1473 2700 Output Total 850 500 Balance 623 2200 Result Diagrams: 02/04/19 14:31 02/05/19 05:19 EKG Reviewed by me: Yes (Tele paced) Hospitalist ROS - Review of Systems Respiratory: denies: cough, dry, shortness of breath, hemoptysis, SOB with excertion, pleuritic pain, sputum, wheezing, other Cardiovascular: denies: chest pain, palpitations, orthopnea, paroxysmal noc. dyspnea, edema, light headedness, other - Medication Medications: Active Medications Generic Name Dose Route Start Last Admin Trade Name Freq PRN Reason Stop Dose Admin Apixaban 2.5 mg 02/04/19 21:00 02/05/19 21:07 Eliquis PO 2.5 mg BID TORSTEN Administration Atorvastatin Calcium 10 mg 02/04/19 21:00 02/05/19 21:07 Lipitor PO 10 mg HS TORSTEN Administration Sodium Chloride 1,000 mls @ 125 mls/hr 02/05/19 09:00 02/05/19 18:28 Normal Saline 0.9% IV 1,000 mls .Q8H TORSTEN Administration Levothyroxine Sodium 50 mcg 02/05/19 06:00 02/05/19 06:03 Synthroid PO 50 mcg 0600 TORSTEN Administration Memantine 5 mg 02/04/19 21:00 02/05/19 21:07 Namenda PO 5 mg BID TORSTEN Administration Olanzapine 2.5 mg 02/04/19 21:00 02/05/19 21:07 Zyprexa PO 2.5 mg QPM TORSTEN Administration Sodium Chloride 10 ml 02/04/19 17:17 02/04/19 20:10 Flush - Normal Saline IVF 10 ml PRN PRN Administration Saline Flush - Exam General Appearance: NAD Neck: supple, no JVD Heart: RRR, no gallops Respiratory: CTAB, no rales Gastrointestinal: soft, non-tender, non-distended, normal bowel sounds Extremities: no edema Hosp A/P - Plan 1. Acute kidney injury on chronic kidney disease, stage 3, multifactorial. 2. Dizziness secondary to #1. 3. Chronic systolic heart failure, status post AICD. 4. History of hypertension. 5. Paroxysmal atrial fibrillation, on anticoagulation. 6. Penicillin allergy. 7. Dementia. 8. Depression, mild, stable. 9. Hyperlipidemia. 10. Hypothyroidism. PLAN: The Lasix, lisinopril, and carvedilol on hold Renal USG reviewed Increase IVF to 125 ml/hr AM labs Cardio/Nephro input appreciated Cont other meds
[2019-02-06] MEDS ORDERED: Sodium Chloride 0.9% 500 ML IV SCH (00:45)
[2019-02-06 04:53] LABS: #Eosinphils 0.2 thou/uL (0.0-0.7); #Lymphocytes 1.3 thou/uL (1.20-3.40); #Monocytes 0.4 thou/uL (0.11-0.59); #Neutrophils 2.8 thou/uL (1.40-6.50); %Basophils 0.6 % (0.0-1.0); %Eosinophils 3.6 % (0.0-10.0); %Lymphocytes 27.2 % (21.0-51.0); %Neutrophils 60.5 % (42.0-75.0); Hemoglobin 9.7 g/dL (12.0-16.0); Mean Corpuscular HGB CONC 35.2 g/dL (32.0-36.0); Mean Corpuscular Hemoglobin 34.1 pg (27.0-31.0); Mean Corpuscular Volume 96.9 fL (78.0-98.0); Mean Platelet Volume 8.4 fL (7.4-10.4); Platelet Count 131 thou/uL (130-400); RBC Distribution Width 11.7 % (11.5-14.5); Red Blood Cell (RBC) Count 2.85 mill/uL (4.20-5.40); White Blood Cell (WBC) Count 4.6 thou/uL (4.8-10.8)
[2019-02-06 05:02] LABS: Anion Gap 8 mmol/L (10-20); BUN (Urea Nitrogen) 15 mg/dL (9.8-20.1); Calc. Creatinine Clearance 43 mL/min (70-130); Calcium 7.9 mg/dL (7.8-10.44); Carbon Dioxide 23 mmol/L (23-31); Chloride 114 mmol/L (98-107); Estimated GFR-MDRD 38; Glucose 73 mg/dL (83-110); Magnesium 2.1 mg/dL (1.6-2.6); Potassium 3.9 mmol/L (3.5-5.1); Sodium 141 mmol/L (136-145)
[2019-02-06] MEDS: Levothyroxine Sodium 50 MCG TAB PO SCH (05:45)
[2019-02-06] MEDS: Sodium Chloride 0.9% 1,000 ML IV SCH (05:45)
[2019-02-06] MEDS: Lactated Ringer's 1,000 ML IV SCH ×2 (08:56→17:05)
[2019-02-06] MEDS: Apixaban 2.5 MG TAB PO SCH ×2 (08:56→20:24)
--- NOTE | 2019-02-06 12:54 | PRG ---
DATE OF SERVICE: 02/06/2019 SERVICE: Nephrology. SUBJECTIVE: A 73-year-old female admitted due to dizziness and hypotension as well as abnormal labs. The patient was found to have elevated creatinine. She reports feeling better. Denied any discomfort, shortness of breath, palpitation, or edema. Appetite and oral intake have been optimal. Of note, the patient has history of dementia. She was on diuretics and antihypertensives for CHF treatment. OBJECTIVE: VITAL SIGNS: Temperature 98.1, pulse 63, respiratory rate 16, SpO2 of 97 on room air, and blood pressure is 123/80. GENERAL: Healthy-looking female, in no distress. Afebrile. Anicteric. Acyanotic. HEENT: Normocephalic, atraumatic. Oral mucosa is moist. NECK: No JVD or masses appreciated. CARDIOVASCULAR: Regular rhythm and rate with normal heart sounds 1 and 2. RESPIRATORY: Good air entry bilaterally with no crackle or rhonchi or use of accessory muscles. GI: Full, soft, nontender, nondistended with normal bowel sounds. EXTREMITIES: Grossly normal looking, atraumatic with no edema or erythema. TARGET MAN: Conscious, alert, oriented x3 with appropriate mental status. Cranial nerves 2 through 12 are grossly intact. The patient moves all extremities. Some memory lapses noted. DIAGNOSTIC DATA: CBC showed WBC count of 4.6, hemoglobin of 9.7, MCV of 96.9, and platelets of 131. BMP showed sodium of 141, potassium 3.9, chloride 119, CO2 of 23, BUN 15, creatinine 1.37, glucose 73, and magnesium 2.1. ASSESSMENT: 1. Acute renal failure: Due to hemodynamic factors related to hypotension, volume depletion. Creatinine is improving with IV fluid therapy. 2. Mild hyperchloremic metabolic acidosis: Due to normal saline infusion. 3. Persistent hypotension: This is felt to be iatrogenic; however, gastrointestinal bleeding cannot be ruled out given associated acute drop in hemoglobin. 4. Acute anemia. Hemoglobin went down from 12.9 on admission to 9.7 currently. This is felt to be a correction of hemoconcentration as there is no overt bleeding. However, review of medical records showed that the patient has had distant hemoglobin in the last year with most current prior hemoglobin being 13.0 on April 03, 2018. PLAN: 1. We will continue IV fluid therapy at this time. We will however substitute normal saline with LR. 2. We will await echocardiogram to assess cardiac function. The patient has prior history of cardiomyopathy. 3. We will get occult blood to rule out gastrointestinal bleeding. 4. We will also follow electrolytes and hemoglobin. Avoid antihypertensives and diuretics at this time. We will follow along with you. Job ID: [id number]
--- NOTE | 2019-02-06 15:08 | PRG ---
DATE OF SERVICE: 02/06/2019 SUBJECTIVE: Ms. Henning is doing better. Blood pressure appears more stable. Echo was performed and revealed LVEF of 50% to 55%. She had ndps-cs-slhugsyc MR with uwvlxcra-zm-cnhmha TR. OBJECTIVE: VITAL SIGNS: Blood pressure 120/73, pulse 72, temperature 92. LUNGS: Clear to auscultation. HEART: Regular rate and rhythm. ABDOMEN: Soft, nontender, nondistended. EXTREMITIES: No edema. IMPRESSION: 1. Hypotension. 2. Tnewughn-xq-mdpxjz tricuspid regurgitation. 3. Dementia. 4. Paroxysmal atrial fibrillation. Ms. Henning' likely demise was due to volume contraction. She responded well to IV fluids. Blood pressure appears more stable. Her LVEF appears normal. RECOMMENDATIONS: 1. Continue Eliquis, atorvastatin. 2. Reinstitute carvedilol at 3.125 one p.o. b.i.d. and lisinopril at 5 mg p.o. q.a.m. tomorrow if blood pressure remains stable. 3. Otherwise, no further recommendations. Please re-consult if needed. Dr. Richard will work on this weekend. Job ID: [id number]
[2019-02-06] MEDS: OLANZapine 2.5 MG TAB PO SCH (20:24)
[2019-02-06] MEDS: Atorvastatin Calcium 10 MG TAB PO SCH (20:24)
--- NOTE | 2019-02-06 22:51 | PDOC.HOSPP ---
- Subjective Encounter Date: 02/06/19 Encounter Time: 17:00 Subjective: Patient seen and examined for CIELO. No CP/SOB/Dizziness. No new complaints. No overnight events - Objective Vital Signs & Weight: Vital Signs (12 hours) Temp Pulse Resp BP BP BP Pulse Ox 02/06/19 19:05 97.5 F L 76 20 143/80 H 99 02/06/19 15:52 98.1 F 61 18 116/68 100 02/06/19 12:40 98.2 F 72 18 121/73 98 02/06/19 12:00 98.9 F 78 16 130/71 96 Weight Weight 166 lb 12.8 oz I&O: 02/05/19 02/06/19 02/07/19 06:59 06:59 06:59 Intake Total 1473 4970 1200 Output Total 850 1150 Balance 623 3820 1200 Result Diagrams: 02/06/19 04:05 02/06/19 04:05 EKG Reviewed by me: Yes (Tele Paced) Hospitalist ROS - Review of Systems Respiratory: denies: cough, dry, shortness of breath, hemoptysis, SOB with excertion, pleuritic pain, sputum, wheezing, other Cardiovascular: denies: chest pain, palpitations, orthopnea, paroxysmal noc. dyspnea, edema, light headedness, other - Medication Medications: Active Medications Generic Name Dose Route Start Last Admin Trade Name Freq PRN Reason Stop Dose Admin Apixaban 2.5 mg 02/04/19 21:00 02/06/19 20:24 Eliquis PO 2.5 mg BID TORSTEN Administration Atorvastatin Calcium 10 mg 02/04/19 21:00 02/06/19 20:24 Lipitor PO 10 mg HS TORSTEN Administration Lactated Ringer's 1,000 mls @ 125 mls/hr 02/06/19 07:30 02/06/19 17:05 Lactated Ringer's IV 1,000 mls .Q8H TORSTEN Administration Levothyroxine Sodium 50 mcg 02/05/19 06:00 02/06/19 05:45 Synthroid PO 50 mcg 0600 TORSTEN Administration Memantine 5 mg 02/04/19 21:00 02/06/19 20:24 Namenda PO 5 mg BID TORSTEN Administration Olanzapine 2.5 mg 02/04/19 21:00 02/06/19 20:24 Zyprexa PO 2.5 mg QPM TORSTEN Administration Sodium Chloride 10 ml 02/04/19 17:17 02/06/19 08:56 Flush - Normal Saline IVF 10 ml PRN PRN Administration Saline Flush - Exam General Appearance: NAD Neck: supple, no JVD Heart: RRR, no gallops, no rubs Respiratory: CTAB, no rales, no ronchi Gastrointestinal: soft, non-tender, normal bowel sounds Extremities: no edema Hosp A/P - Plan 1. Acute kidney injury on chronic kidney disease, stage 3, multifactorial. 2. Dizziness secondary to #1. 3. Chronic systolic heart failure, status post AICD. 4. History of hypertension. 5. Paroxysmal atrial fibrillation, on anticoagulation. 6. Penicillin allergy. 7. Dementia. 8. Depression, mild, stable. 9. Hyperlipidemia. 10. Hypothyroidism. PLAN: Cont IVF - changed to LR Will increase Eliquis to home dose once renal function improves. Resume Coreg/Lisinopril at low dose in AM if BP stable Lasix on hold AM labs Cardio/Nephro input appreciated Cont other meds
[2019-02-07] MEDS: Lactated Ringer's 1,000 ML IV SCH ×2 (00:13→08:56)
[2019-02-07] MEDS: Levothyroxine Sodium 50 MCG TAB PO SCH (05:15)
[2019-02-07 06:04] LABS: Anion Gap 10 mmol/L (10-20); BUN (Urea Nitrogen) 11 mg/dL (9.8-20.1); Calc. Creatinine Clearance 58 mL/min (70-130); Carbon Dioxide 24 mmol/L (23-31); Chloride 111 mmol/L (98-107); Estimated GFR-MDRD 50; Glucose 76 mg/dL (83-110); Potassium 3.7 mmol/L (3.5-5.1); Sodium 141 mmol/L (136-145)
[2019-02-07] MEDS: Apixaban 2.5 MG TAB PO SCH (08:56)
--- NOTE | 2019-02-07 11:55 | PRG ---
DATE OF SERVICE: 02/07/2019 SERVICE: Nephrology. SUBJECTIVE: A 73-year-old female with dementia and cardiomyopathy, admitted due to hypotension associated with acute renal failure. The patient was started on IV fluid with improvement. She has no complaints, feels great and desires to be discharged. OBJECTIVE: VITAL SIGNS: Temperature 98.2, pulse 60, respiratory rate 16, SpO2 of 99% on room air, and blood pressure is 113/71. GENERAL: Comfortable female, in no distress. Afebrile. Anicteric. Acyanotic. HEENT: Normocephalic, atraumatic. Oral mucosa is moist. CARDIOVASCULAR: Regular rhythm and rate with normal heart sounds 1 and 2. RESPIRATORY: Good air entry bilaterally with no crackle or rhonchi or use of accessory muscles. GI: Full, soft, nontender, nondistended with normal bowel sounds. EXTREMITIES: Grossly normal looking atraumatic with no edema or erythema. TRANSPORTER RADIOLOGY: Conscious, alert, and oriented x3 with appropriate mental status. DIAGNOSTIC DATA: BMP showed sodium 141, potassium 3.7, chloride 114, CO2 of 24, BUN 11, creatinine 1.08, glucose 76, and calcium 8.0. Echocardiogram showed normal systolic function with EF of 50% to 55%. Mild to moderate mitral regurgitation as well as mild to severe tricuspid regurgitation were noted. ASSESSMENT: 1. Acute renal failure: Due to prerenal from volume depletion and use of antihypertensives and diuretics. Creatinine has improved from admission level of 2.99-1.08 with IV fluids. 2. Metabolic acidosis: Resolved. 3. Hypotension: Improved with crystalloids and discontinuation of antihypertensives and diuretics. 4. Cardiomyopathy: Improved. EF is said to be 30-35% before, but currently is 50-55%. Cardiology is following to re-evaluate congestive heart failure treatment in view of hypotension and acute kidney injury. PLAN: Discontinue IV fluid. [place] oral intake advised. Repeat renal function in the morning. If renal function remains stable, the patient can be discharged if hemodynamically stable from Nephrology point of view tomorrow. Many thanks for involving us in the care of this patient. We will follow along with you. Job ID: [id number]
--- NOTE | 2019-02-07 14:43 | PDOC.HOSPP ---
- Subjective Encounter Date: 02/07/19 Encounter Time: 08:00 Subjective: Pt seen for followup re: CHF. Says she feels better. - Objective Vital Signs & Weight: Vital Signs (12 hours) Temp Pulse Pulse Pulse Resp BP BP 02/07/19 12:30 98.8 F 68 16 02/07/19 09:53 92 60 143/88 H 113/71 02/07/19 08:45 98.2 F 60 16 02/07/19 05:00 66 02/07/19 04:25 60 02/07/19 04:10 98.4 F 64 16 BP BP BP BP Pulse Ox 02/07/19 12:30 138/82 100 02/07/19 09:53 02/07/19 08:45 106/72 95/61 107/64 99 02/07/19 05:00 108/67 02/07/19 04:25 87/46 L 02/07/19 04:10 76/44 L 96 Weight Weight 170 lb I&O: 02/06/19 02/07/19 02/08/19 06:59 06:59 05:59 Intake Total 4970 3100 Output Total 1150 1300 Balance 3820 1800 labs and MARs reviewed by me Result Diagrams: 02/06/19 04:05 02/07/19 04:50 Additional Labs: labs and MARs reviewed by me EKG Reviewed by me: Yes (Tele; A-paced) Hospitalist ROS - Review of Systems Cardiovascular: denies: chest pain, palpitations, orthopnea, paroxysmal noc. dyspnea, edema, light headedness Gastrointestinal: denies: nausea, vomiting, abdominal pain, diarrhea, constipation, melena, hematochezia - Medication Medications: Active Medications Generic Name Dose Route Start Last Admin Trade Name Freq PRN Reason Stop Dose Admin Apixaban 2.5 mg 02/04/19 21:00 02/07/19 08:56 Eliquis PO 2.5 mg BID TORSTEN Administration Atorvastatin Calcium 10 mg 02/04/19 21:00 02/06/19 20:24 Lipitor PO 10 mg HS TORSTEN Administration Levothyroxine Sodium 50 mcg 02/05/19 06:00 02/07/19 05:15 Synthroid PO 50 mcg 0600 TORSTEN Administration Memantine 5 mg 02/04/19 21:00 02/07/19 08:56 Namenda PO 5 mg BID TORSTEN Administration Olanzapine 2.5 mg 02/04/19 21:00 02/06/19 20:24 Zyprexa PO 2.5 mg QPM TORSTEN Administration Sodium Chloride 10 ml 02/04/19 17:17 02/06/19 08:56 Flush - Normal Saline IVF 10 ml PRN PRN Administration Saline Flush - Exam General Appearance: NAD Eye: anicteric sclera ENT: moist mucosa Neck: supple Heart: RRR Respiratory: CTAB, no rales Gastrointestinal: soft, non-tender Musculoskeletal: no muscle wasting Psychiatric: normal affect, normal behavior Hosp A/P - Plan 1. Chronic systolic heart failure, status post AICD. 2. Acute kidney injury on chronic kidney disease, stage 3, multifactorial. 3. Hypothyroidism. 4. History of hypertension. 5. Paroxysmal atrial fibrillation, on anticoagulation. 6. Penicillin allergy. 7. Dementia. 8. Depression, mild, stable. 9. Hyperlipidemia. PLAN: Blood pressure improved. DC IV fluids, start Coreg and lisinopril. Increase Eliquis to 5 mg PO BID. CIELO resolved.
[2019-02-07] MEDS: Carvedilol 3.125 MG TAB PO SCH (17:37)
[2019-02-07] MEDS: OLANZapine 2.5 MG TAB PO SCH (20:04)
[2019-02-07] MEDS: Apixaban 5 MG TAB PO SCH (20:04)
[2019-02-07] MEDS: Atorvastatin Calcium 10 MG TAB PO SCH (20:04)
[2019-02-08 03:56] LABS: Hemoglobin 9.8 g/dL (12.0-16.0); Platelet Count 131 thou/uL (130-400)
[2019-02-08 04:28] LABS: Anion Gap 11 mmol/L (10-20); BUN (Urea Nitrogen) 8 mg/dL (9.8-20.1); Calc. Creatinine Clearance 67 mL/min (70-130); Calcium 8.3 mg/dL (7.8-10.44); Carbon Dioxide 26 mmol/L (23-31); Chloride 110 mmol/L (98-107); Estimated GFR-MDRD 59; Glucose 69 mg/dL (83-110); Potassium 3.9 mmol/L (3.5-5.1); Sodium 143 mmol/L (136-145)
[2019-02-08] MEDS: Levothyroxine Sodium 50 MCG TAB PO SCH (05:35)
[2019-02-08] MEDS: Carvedilol 3.125 MG TAB PO SCH (08:26)
[2019-02-08] MEDS: Apixaban 5 MG TAB PO SCH (08:26)
[2019-02-08] MEDS ORDERED: Lisinopril 5 MG TAB PO SCH (09:00)
[2019-02-08 13:10] VITALS: BP 124/82; TEMP 98.4
--- NOTE | 2019-02-08 14:23 | PRG ---
DATE OF SERVICE: 02/08/2019 SERVICE: Nephrology. SUBJECTIVE: A 73-year-old female with mild dementia and cardiomyopathy, admitted due to hypotension associated with acute renal failure. The patient was on diuretics and had antihypertensives. Renal function has improved with IV fluids while antihypertensives were held. The patient is feeling great. Denied nausea, vomiting, or dizziness. Desired to go home. OBJECTIVE: VITAL SIGNS: Temperature 98.4, pulse 68, respiratory rate 16, SpO2 of 91% on room air, blood pressure is 124/82. GENERAL: Comfortable female, in no distress. HEENT: Normocephalic, atraumatic. Oral mucosa is moist. CARDIOVASCULAR: Regular rhythm and rate with normal heart sounds 1 and 2. RESPIRATORY: Good air entry bilaterally with no crackle or rhonchi or use of accessory muscles. GI: Full, soft, nontender, nondistended with normal bowel sounds. EXTREMITIES: Grossly normal looking, atraumatic, with no edema or erythema. DIAGNOSTIC DATA: Hemoglobin and hematocrit today are 9.8 and 28.2. Hemoglobin is down from 12.9 on admission. BMP showed sodium 143, potassium 3.9, chloride 110, CO2 of 26, BUN 8, creatinine 0.94, glucose 69, calcium 8.3. ASSESSMENT: 1. Acute renal failure: Due to prerenal etiology from hypotension and volume depletion. Resolved with IV fluid therapy. 2. Metabolic acidosis: Due to acute kidney injury and hypotension, resolved. 3. Hypotension: Due to use of antihypertensives, diuretics, and volume depletion. Resolved with IV fluids while antihypertensives and diuretics were discontinued. 4. Cardiomyopathy: Improved. Most current ejection fraction is 50% to 55%. There is no need at this time for any diuretics or antihypertensives. PLAN: Given that renal function remained stable with discontinuation of IV fluid, the patient can be discharged from Nephrology point of view. She, however, needs to follow up with dropper tank storage at [facility]. Avoid nephrotoxic agent including diuretics. The patient does not need to be on any antihypertensive at this time as blood pressure is still soft. [place] oral intake advised. We will sign off at this time. Job ID: [id number]
--- NOTE | 2019-02-09 04:52 | DIS ---
DATE OF ADMISSION: 02/05/2019 DATE OF DISCHARGE: 02/08/2019 PRIMARY CARE PROVIDER: Dr. Ana Newton. DISCHARGE DIAGNOSES: 1. Acute on chronic stage 3 renal failure. 2. Chronic systolic heart failure. CONDITION OF PATIENT ON THE DAY OF DISCHARGE: Stable. I assessed Ms. Henning on the day of discharge. She denies any chest pain or shortness of breath. Vital signs are stable. S1 and S2 are heard, regular. Lungs are clear to auscultation bilaterally. CONSULTATIONS DURING THIS HOSPITALIZATION: 1. Nephrology, Dr. Casillas. 2. Card[address] Dr. Faustin. DISCHARGE MEDICATIONS: Furosemide dose has been decreased to 20 mg daily. Carvedilol dose have been decreased to 3.125 mg 2 times a day. Otherwise, no change was made to her pre-admission home medications as dictated by Dr. Beverly in his history and physical note dated February 04, 2019. POST-DISCHARGE FOLLOWUP: The patient is advised to follow up with primary care provider in 3 days' time, with Dr. Faustin in 2 to 3 weeks and with her stock broker in 1 week. The patient was seen by Nephrology Service. It was felt that her renal failure was secondary to volume contraction. She improved with intravenous fluids. She was also seen by Cardiology Service. 2D echocardiogram showed left ventricular ejection fraction of 50% to 55%, normal-sized left atrium, normal left ventricular size, [id number] mitral regurgitation, pejbuwkd-wy-fjoizp tricuspid regurgitation. Once her renal function improved, she has been started back on carvedilol at a lower dose and lisinopril. She is being discharged home in a stable condition. Renal ultrasound done during this hospitalization did not show any evidence for obstructive uropathy. On the day of discharge, she has creatinine 1.02 and hemoglobin 9.8. DISCHARGE DESTINATION: Home. TIME SPENT: Total amount of time spent coordinating this discharge: 32 minutes. Job ID: [id number]
[2019-02-09] MEDS ORDERED: Furosemide 20 MG TAB PO SCH (09:00)
--- NOTE | 2019-02-10 04:13 | PQF ---
CARLOS ORTIZ DAVID [id number] CLINICAL DOCUMENTATION CLARIFICATION FORM: POST DISCHARGE Addendum to original discharge summary date: ____ Late entry note date: __ DATE: 02/10/19 ATTN: Cr Cox Please exercise your independent, professional judgment in responding to the clarification form. Clinical indicators are provided on the bottom of this form for your review Can you please further specify the etiology of hypotension? Please check appropriate box(s): [ ] Iatrogenic Hypotension [ ] Orthostatic Hypotension [ x ] Hypotension due to medication [ ] Hypotension due to cardiogenic shock [ ] Other diagnosis please specify [ ] Unable to determine In addition, please specify: Present on Admission (POA): [ x ] Yes [ ] No [ ] Unable to determine For continuity of documentation, please document condition throughout progress notes and discharge summary. Thank You. CLINICAL INDICATORS - SIGNS / SYMPTOMS / LABS Consult Dr. Faustin pg.1- she was found to be hypotensive with symptoms of dizziness Consult Dr. Faustin pg.2- Hypotension likely volume contraction Consult Dr. Casillas 02/05 pg.3- Hypotension either iatrogenic due to medication or due to cardiogenic shock PN Dr. Casillas 02/06 pg.1-Persistent hypotension. This felt to be iatrogenic PN Dr. Casillas 02/08 pg.1- Hypotension due to use of antihypertensives diuretics and volume depletion RISK FACTORS CIELO- H and P pg.3 Chronic systolic CHF_ H and P pg.3 Hypertension- H and P pg.2 Hyperlipidemia- H and P pg.3 Hypothyroidism- H and P pg.3 TREATMENTS: BP Monitoring- Vital signs IV Fluids- MAR Cardiology Consult- Dr. Faustin (This form is maintained as a part of the permanent medical record) 2014 [employer]. All Rights Reserved [email or web address] [not provided] EDILIA
== END 2019-02-08 15:03 | disposition home or self-care (01) | DRG 683 ==
LOC: ERS 14:03 → 2SW 18:59 → OBSVTOIN 02-05 02:15 → 2NO 02-05 10:24
PROVIDERS: ADMIT Internal Medicine; ATTEND Internal Medicine
DX: N17.9 Acute kidney failure, unspecified (principal); I50.22 Chronic systolic (congestive) heart failure; F32.0 Major depressive disorder, single episode, mild; I13.0 Hypertensive heart and chronic kidney disease with heart failure and stage 1 through stage 4 chronic kidney disease, or unspecified chronic kidney disease; I42.8 Other cardiomyopathies; E87.2 Acidosis; I95.2 Hypotension due to drugs; T50.2X5A Adverse effect of carbonic-anhydrase inhibitors, benzothiadiazides and other diuretics, initial encounter; T46.5X5A Adverse effect of other antihypertensive drugs, initial encounter; E86.9 Volume depletion, unspecified; N18.3 Chronic kidney disease, stage 3 (moderate); I48.0 Paroxysmal atrial fibrillation; F03.90 Unspecified dementia, unspecified severity, without behavioral disturbance, psychotic disturbance, mood disturbance, and anxiety; E03.9 Hypothyroidism, unspecified; E87.8 Other disorders of electrolyte and fluid balance, not elsewhere classified; D63.1 Anemia in chronic kidney disease; Z95.810 Presence of automatic (implantable) cardiac defibrillator; Z79.01 Long term (current) use of anticoagulants; Z90.49 Acquired absence of other specified parts of digestive tract; Z90.710 Acquired absence of both cervix and uterus; Z88.0 Allergy status to penicillin; Z79.899 Other long term (current) drug therapy; Z87.891 Personal history of nicotine dependence; I08.1 Rheumatic disorders of both mitral and tricuspid valves; E78.5 Hyperlipidemia, unspecified; Z79.890 Hormone replacement therapy
CPT/HCPCS: 36415; 71045; 76770; 80048; 80053; 81001; 82565; 82570; 83735; 84156; 84300; 84484; 84540; 85014; 85018; 85025; 85049; 87086; 90471; 90662; 93005; 93306; 93798; 94760; 96360; 96361; G0008; J7120

== ENCOUNTER 2019-04-21 10:57 | Emergency (ER) | payer MEDICARE, OTHER ==
[2019-04-21 11:36] LABS: #Eosinphils 0.2 thou/uL (0.0-0.7); #Lymphocytes 0.9 thou/uL (1.20-3.40); #Monocytes 0.5 thou/uL (0.11-0.59); #Neutrophils 6.8 thou/uL (1.40-6.50); %Basophils 0.2 % (0.0-1.0); %Lymphocytes 10.9 % (21.0-51.0); %Monocytes 5.8 % (0.0-10.0); %Neutrophils 81.1 % (42.0-75.0); Hemoglobin 13.8 g/dL (12.0-16.0); Mean Corpuscular HGB CONC 32.7 g/dL (32.0-36.0); Mean Corpuscular Hemoglobin 31.9 pg (27.0-31.0); Mean Corpuscular Volume 97.7 fL (78.0-98.0); Mean Platelet Volume 7.4 fL (7.4-10.4); Platelet Count 203 thou/uL (130-400); RBC Distribution Width 11.7 % (11.5-14.5); Red Blood Cell (RBC) Count 4.33 mill/uL (4.20-5.40); White Blood Cell (WBC) Count 8.4 thou/uL (4.8-10.8)
[2019-04-21 11:48] LABS: INR-International Normal Ratio 1.4; PTT 28.3 SEC (22.9-36.1); Prothrombin Time 16.6 SEC (12.0-14.7)
[2019-04-21 11:57] LABS: ALT (SGPT) 10 U/L (8-55); AST (SGOT) 30 U/L (5-34); Albumin 3.9 g/dL (3.4-4.8); Alkaline Phosphatase 127 U/L (40-110); Anion Gap 14 mmol/L (10-20); BUN (Urea Nitrogen) 16 mg/dL (9.8-20.1); Bilirubin, Total 0.7 mg/dL (0.2-1.2); Calc. Creatinine Clearance 0 mL/min (70-130); Carbon Dioxide 24 mmol/L (23-31); Chloride 103 mmol/L (98-107); Estimated GFR-MDRD 53; Globulin 3.4 g/dL (2.4-3.5); Glucose 114 mg/dL (83-110); Protein, Total 7.3 g/dL (6.0-8.3); Sodium 137 mmol/L (136-145)
[2019-04-21] MEDS ORDERED: Pantoprazole 40 MG VIAL ONE (13:24)
[2019-04-21] MEDS ORDERED: Iopamidol-370 76% 500 ML 1 ML ONE (13:33)
--- NOTE | 2019-04-21 14:38 | CT ---
ABDOMEN AND PELVIC CT SCAN WITH IV CONTRAST: Date: 04/21/2019 HISTORY: Blood in stool. Patient taking Eliquis. COMPARISON: Renal ultrasound 02/05/2019. FINDINGS: Lung bases appear clear. Small hiatal hernia. Liver unremarkable. Status post cholecystectomy. Pancreas and spleen unremarkable. There is a 1.1 cm diameter indeterminate nodule of the left adrenal gland, not adequately characteriz ed on this study. No evidence for renal calculi or acute obstruction. There are two small, approximately 1.0 cm, diameter exophytic lower attenuation masses of the left ki dney, one posteriorly and superiorly, and the other inferiorly. These are indeterminate as far as cys tic or solid, and could represent cysts which are partially volumed on this postcontrast study, compl icated small cysts, or even hypodense solid masses. No evidence for large or small bowel obstruction. No abscess, adenopathy, or abnormal fluid collectio n. Left total hip replacement change with extensive artifact. Prominent amount of solid dense fecal m aterial in dilated rectum, evidence for constipation. Minimal sigmoid colon diverticulosis without ac patric diverticulitis. No abscess or abnormal fluid collection. No hydronephrosis. IMPRESSION: 1. Two small, approximately 1.0 cm diameter, cortical hypodensities in the left kidney, insufficient ly characterized. 2. Approximately 1.0 cm diameter nodule in the left adrenal gland, also incompletely characterized. 3. No renal hydronephrosis. 4. No abscess, adenopathy, or abnormal fluid collection. 5. Small hiatal hernia. 6. Other findings as above. If the patient has hematuria, follow-up additional imaging of the kidneys with and without contrast w ith renal mass protocol should be considered. POS: OFF
[2019-04-21] MEDS ORDERED: Pantoprazole 80 MG in Sodium Chloride 0.9% 100 ML IVP SCH (15:30)
[2019-04-21] MEDS ORDERED: Sodium Chloride 0.9% 1,000 ML IV SCH (16:30)
[2019-04-21 17:36] LABS: #Eosinphils 0.1 thou/uL (0.0-0.7); #Lymphocytes 0.9 thou/uL (1.20-3.40); #Monocytes 0.8 thou/uL (0.11-0.59); #Neutrophils 11.9 thou/uL (1.40-6.50); %Basophils 0.1 % (0.0-1.0); %Eosinophils 0.5 % (0.0-10.0); %Lymphocytes 6.9 % (21.0-51.0); %Monocytes 6.1 % (0.0-10.0); %Neutrophils 86.5 % (42.0-75.0); Hemoglobin 14.4 g/dL (12.0-16.0); Mean Corpuscular HGB CONC 34.4 g/dL (32.0-36.0); Mean Corpuscular Hemoglobin 32.9 pg (27.0-31.0); Mean Corpuscular Volume 95.7 fL (78.0-98.0); Mean Platelet Volume 7.3 fL (7.4-10.4); Platelet Count 187 thou/uL (130-400); RBC Distribution Width 11.6 % (11.5-14.5); Red Blood Cell (RBC) Count 4.38 mill/uL (4.20-5.40); White Blood Cell (WBC) Count 13.7 thou/uL (4.8-10.8)
== END 2019-04-21 18:21 | disposition home or self-care (01) ==
LOC: ERS 10:57
DX: K92.1 Melena (principal); E78.5 Hyperlipidemia, unspecified; I48.91 Unspecified atrial fibrillation; I10 Essential (primary) hypertension; E78.00 Pure hypercholesterolemia, unspecified; F32.9 Major depressive disorder, single episode, unspecified; Z79.899 Other long term (current) drug therapy; Z79.891 Long term (current) use of opiate analgesic
CPT/HCPCS: 36415; 74177; 80053; 82274; 85025; 85610; 85730; 86850; 86900; 86901; 96365; 96366; 96376; C9113; J3490; Q9967

== ENCOUNTER 2020-06-08 12:20 | Outpatient (CLI) | payer MEDICARE, OTHER | END 2020-06-08 12:21 | disposition home or self-care (01) | LOC: RAD 12:20 | PROVIDERS: ATTEND Nurse Practitioner | DX: I48.19 Other persistent atrial fibrillation (principal) | CPT/HCPCS: 71046 ==

== ENCOUNTER 2020-08-09 08:38 | Emergency (ER) | payer MEDICARE, OTHER ==
[2020-08-09] MEDS ORDERED: Boostrix 0.5 ML (Tdap) VIAL ONE (08:51)
[2020-08-09] MEDS ORDERED: Acetaminophen 500 MG TAB ONE (08:51)
[2020-08-09] MEDS ORDERED: Lidocaine 1% PF 5 ML VIAL ONE (08:51)
== END 2020-08-09 10:50 | disposition home or self-care (01) ==
LOC: ERS 08:38
DX: S01.21XA Laceration without foreign body of nose, initial encounter (principal); E78.5 Hyperlipidemia, unspecified; E78.00 Pure hypercholesterolemia, unspecified; I48.91 Unspecified atrial fibrillation; I10 Essential (primary) hypertension; Z79.899 Other long term (current) drug therapy; W22.8XXA Striking against or struck by other objects, initial encounter
CPT/HCPCS: 12011; 70450; 72125; 90471; 90715

== ENCOUNTER 2021-04-03 13:53 | Outpatient (CLI) | payer MEDICARE, OTHER | END 2021-04-03 13:54 | disposition home or self-care (01) | LOC: BICRAD 13:53 | PROVIDERS: ATTEND Physician Assistant | DX: R05.9 Cough, unspecified (principal) | CPT/HCPCS: 71046 ==

== ENCOUNTER 2022-12-03 22:42 | Observation (INO) | payer OTHER ==
[2022-12-03] MEDS ORDERED: HYDROcodone/Acetaminophen 5/325 mg Tablet PO PRN (23:05)
[2022-12-03] MEDS ORDERED: Acetaminophen 325 MG TAB PO PRN (23:05)
[2022-12-03] MEDS ORDERED: Ondansetron ODT 4 MG TAB PO PRN (23:05)
[2022-12-03] MEDS ORDERED: Morphine 2 MG/ML VIAL SLOW IVP PRN (23:08)
[2022-12-03] MEDS ORDERED: Sodium Chloride 0.9% 1,000 ML IV SCH (23:45)
[2022-12-03] MEDS ORDERED: Melatonin 3 MG TAB PO PRN (23:55)
[2022-12-04 01:08] LABS: Bacteria/HPF None Seen HPF (None Seen); Bilirubin Negative (Negative); Blood, Urine 1+ (Negative); CAUTI Indications for Culture Alt mental st,lethar; Clarity Clear (Clear); Glucose, Urine (Dipstick) Normal (Negative); Ketone, Urine Negative (Negative); Leukocyte Negative Leu/uL (Negative); Nitrite Negative (Negative); Protein, Urine (Dipstick) 20 mg/dL (Neg-Trace); RBC/HPF 21-50 HPF (0-3); Specific Gravity, Urine 1.025 (1.002-1.036); Squamous Epithelial 0-3 HPF (0-3); Urobilinogen 3 mg/dL (Less than 2); WBC/HPF 0-3 HPF (0-3); pH, Urine 6.5 (5.0-9.0)
[2022-12-04 01:10] LABS: Urine Culture Reflex No No
[2022-12-04 01:11] LABS: SARS-CoV-2 NAA Rapid Test DETECTED (NotDetected)
[2022-12-04] MEDS ORDERED: Acetaminophen 650 MG Suppository PR PRN (01:23)
[2022-12-04] MEDS ORDERED: Benzonatate 100 MG CAP PO PRN (01:23)
[2022-12-04] MEDS ORDERED: Albuterol 200 PUFF (6.7GM INHALER) INH PRN (01:23)
[2022-12-04] MEDS ORDERED: REMDESIVIR 200 MG in Sodium Chloride 0.9% 250 ML 210 ML IV SCH (01:30)
[2022-12-04] MEDS ORDERED: Loratadine 10 MG TAB PO PRN (02:38)
[2022-12-04] MEDS ORDERED: Polyethylene Glycol 3350 17 GM Packet PO PRN (02:38)
[2022-12-04] MEDS ORDERED: Docusate 100 MG CAP PO PRN (02:38)
[2022-12-04] MEDS: Levothyroxine Sodium 50 MCG TAB PO SCH (04:33)
[2022-12-04 04:54] LABS: #Monocytes 1.1 thou/uL (0.11-0.59); #Neutrophils 5.3 thou/uL (1.40-6.50); %Basophils 0.3 % (0.0-1.0); %Eosinophils 0.3 % (0.0-10.0); %Lymphocytes 12.5 % (21.0-51.0); %Monocytes 14.4 % (0.0-10.0); Hematocrit 37.1 % (36.0-47.0); Hemoglobin 12.5 g/dL (12.0-16.0); Mean Corpuscular HGB CONC 33.7 g/dL (32.0-36.0); Mean Corpuscular Hemoglobin 32.1 pg (27.0-31.0); Mean Corpuscular Volume 95.4 fl (78.0-98.0); Mean Platelet Volume 9.2 fL (7.4-10.4); Platelet Count 158 10x3/uL (130-400); RBC Distribution Width 12.7 % (11.5-14.5); Red Blood Cell (RBC) Count 3.89 mill/uL (4.20-5.40); White Blood Cell (WBC) Count 7.3 10x3/uL (4.8-10.8)
[2022-12-04 05:05] VITALS: BMI 23.3
[2022-12-04 05:17] LABS: Anion Gap 11 mmol/L (10-20); BUN (Urea Nitrogen) 11 mg/dL (9.8-20.1); Calc. Creatinine Clearance 59 mL/min (70-130); Calcium 8.8 mg/dL (7.8-10.44); Carbon Dioxide 30 mmol/L (23-31); Chloride 101 mmol/L (98-107); Estimated GFR 73; Glucose 97 mg/dL (83-110); Magnesium 2.2 mg/dL (1.6-2.6); Potassium 3.6 mmol/L (3.5-5.1); Sodium 138 mmol/L (136-145)
[2022-12-04] MEDS ORDERED: Dexamethasone 10 MG/ML VIAL SLOW IVP SCH (09:00)
[2022-12-04] MEDS ORDERED: Potassium Chloride 20 MEQ TAB PO SCH (09:00)
[2022-12-04] MEDS ORDERED: Apixaban 5 MG TAB PO SCH (09:00)
[2022-12-04] MEDS: Amiodarone 200 MG TAB PO SCH (10:16)
[2022-12-04] MEDS: Donepezil HCl 10 MG TAB PO SCH (10:17)
[2022-12-04] MEDS: Apixaban 2.5 MG TAB PO SCH ×2 (10:17→20:46)
[2022-12-04] MEDS: Carvedilol 6.25 MG TAB PO SCH (20:46)
[2022-12-04] MEDS ORDERED: Citalopram 20 MG TAB PO SCH (21:00)
[2022-12-04] MEDS ORDERED: Atorvastatin Calcium 10 MG TAB PO SCH (21:00)
[2022-12-04] MEDS ORDERED: OLANZapine 2.5 MG TAB PO SCH (21:00)
[2022-12-05] MEDS ORDERED: REMDESIVIR 100 MG in Sodium Chloride 0.9% 250 ML 230 ML IV SCH (01:30)
[2022-12-05] MEDS: Levothyroxine Sodium 50 MCG TAB PO SCH (05:41)
[2022-12-05 06:06] LABS: #Monocytes 0.8 thou/uL (0.11-0.59); #Neutrophils 5.2 thou/uL (1.40-6.50); %Basophils 0.1 % (0.0-1.0); %Eosinophils 0.4 % (0.0-10.0); %Lymphocytes 11.8 % (21.0-51.0); %Monocytes 11.9 % (0.0-10.0); %Neutrophils 75.2 % (42.0-75.0); Hematocrit 34.6 % (36.0-47.0); Hemoglobin 11.7 g/dL (12.0-16.0); Mean Corpuscular HGB CONC 33.8 g/dL (32.0-36.0); Mean Corpuscular Hemoglobin 32.5 pg (27.0-31.0); Mean Corpuscular Volume 96.1 fl (78.0-98.0); Mean Platelet Volume 9.5 fL (7.4-10.4); Platelet Count 154 10x3/uL (130-400); RBC Distribution Width 12.7 % (11.5-14.5); White Blood Cell (WBC) Count 6.9 10x3/uL (4.8-10.8)
[2022-12-05 06:25] LABS: ALT (SGPT) Less than 7 U/L (8-55); AST (SGOT) 13 U/L (5-34); Albumin 3.2 g/dL (3.4-4.8); Alkaline Phosphatase 85 U/L (40-110); Anion Gap 10 mmol/L (10-20); BUN (Urea Nitrogen) 10 mg/dL (9.8-20.1); Bilirubin, Total 0.5 mg/dL (0.2-1.2); CRP (Inflammatory) 1.43 mg/dL (= or < 0.5); Calc. Creatinine Clearance 65 mL/min (70-130); Calcium 8.6 mg/dL (7.8-10.44); Carbon Dioxide 27 mmol/L (23-31); Chloride 104 mmol/L (98-107); Estimated GFR 83; Globulin 2.7 g/dL (2.4-3.5); Glucose 104 mg/dL (83-110); Magnesium 2.1 mg/dL (1.6-2.6); Potassium 4.4 mmol/L (3.5-5.1); Protein, Total 5.9 g/dL (5.8-8.1); Sodium 137 mmol/L (136-145)
[2022-12-05] MEDS: Donepezil HCl 10 MG TAB PO SCH (08:45)
[2022-12-05] MEDS: Carvedilol 6.25 MG TAB PO SCH (08:45)
[2022-12-05] MEDS: Amiodarone 200 MG TAB PO SCH (08:49)
[2022-12-05] MEDS: Apixaban 2.5 MG TAB PO SCH (08:50)
[2022-12-05 11:50] VITALS: BP 111/63; TEMP 98
== END 2022-12-05 15:08 | disposition home or self-care (01) ==
LOC: 2SW 22:50
PROVIDERS: ADMIT Family Medicine; ATTEND Internal Medicine
DX: S42.212A Unspecified displaced fracture of surgical neck of left humerus, initial encounter for closed fracture (principal); R55 Syncope and collapse; U07.1 COVID-19; I48.0 Paroxysmal atrial fibrillation; I13.0 Hypertensive heart and chronic kidney disease with heart failure and stage 1 through stage 4 chronic kidney disease, or unspecified chronic kidney disease; I50.9 Heart failure, unspecified; N18.30 Chronic kidney disease, stage 3 unspecified; E03.9 Hypothyroidism, unspecified; F03.90 Unspecified dementia, unspecified severity, without behavioral disturbance, psychotic disturbance, mood disturbance, and anxiety; K21.9 Gastro-esophageal reflux disease without esophagitis; Z79.01 Long term (current) use of anticoagulants; Z79.890 Hormone replacement therapy; Z79.899 Other long term (current) drug therapy; Z90.49 Acquired absence of other specified parts of digestive tract; Z96.642 Presence of left artificial hip joint; Z90.710 Acquired absence of both cervix and uterus; Z88.0 Allergy status to penicillin; Z95.0 Presence of cardiac pacemaker; W19.XXXA Unspecified fall, initial encounter
CPT/HCPCS: 80048; 80053; 81001; 82728; 83735 ×2; 84443; 85025 ×2; 86140; 97116; 97535; G0378 ×2; U0002; 36415; J7050

== ENCOUNTER 2024-03-04 13:56 | Emergency (ER) | payer OTHER, MEDICARE | END 2024-03-05 17:03 | disposition home or self-care (01) | LOC: ERS 13:56 | DX: S70.02XA Contusion of left hip, initial encounter (principal); S90.32XA Contusion of left foot, initial encounter; I13.0 Hypertensive heart and chronic kidney disease with heart failure and stage 1 through stage 4 chronic kidney disease, or unspecified chronic kidney disease; I50.9 Heart failure, unspecified; N18.30 Chronic kidney disease, stage 3 unspecified; W01.0XXA Fall on same level from slipping, tripping and stumbling without subsequent striking against object, initial encounter | CPT/HCPCS: 99284 ==